=== PATIENT | female | born 1985 | race Caucasian/White ===

== ENCOUNTER 2017-11-13 09:16 | Inpatient (IN) | payer OTHER ==
[2017-11-13 10:22] VITALS: BMI 21.6
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
[2017-11-13] MEDS ORDERED: P-EPHED 60MG/TRIPROLIDI 2.5MG TABLET PO PRN (12:58)
[2017-11-13] MEDS ORDERED: LOPERAMIDE HCL 2 MG CAPSULE PO PRN (12:58)
[2017-11-13] MEDS ORDERED: MAGNESIUM CITRATE 300 ML BOTTLE PO PRN (12:58)
[2017-11-13] MEDS ORDERED: MENTHOL/PHENOL 1 EACH UD MM PRN (12:58)
[2017-11-13] MEDS ORDERED: IBUPROFEN 400 MG TABLET (FP) PO PRN (12:58)
[2017-11-13] MEDS ORDERED: NICOTINE POLACRILEX 2 MG GUM BUC PRN (12:58)
[2017-11-13] MEDS ORDERED: ACETAMINOPHEN 325 MG TABLET (FP) PO PRN (12:58)
[2017-11-13] MEDS ORDERED: MAG HYDROX/AL HYDROX/SIMETH 30 ML UNIT-DOSE CUP PO PRN (12:58)
[2017-11-13] MEDS ORDERED: MAGNESIUM HYDROX 2400MG/30ML ORAL SUSPENSION 30 ML CUP PO PRN (12:58)
[2017-11-13] MEDS ORDERED: diazePAM 5 MG TABLET PO ONE (14:10)
[2017-11-13] MEDS ORDERED: METHADONE HCL 10 MG TABLET (FOR DETOX USE ONLY) PO ONE ×2 (14:15→23:00)
[2017-11-13] MEDS: NICOTINE 14 MG/24 HOURS TOPICAL PATCH TD SCH (14:35)
[2017-11-13] MEDS: diazePAM 5 MG TABLET PO SCH ×2 (14:36→22:12)
[2017-11-13 14:54] LABS: HEMATOCRIT 32.4 % (32.4-45.2); HEMOGLOBIN 10.6 GM/dL (10.7-15.3); MCH 22.8 pg (25.7-33.7); MCHC 32.6 g/dl (32.0-36.0); MEAN CELL VOLUME 69.7 fl (80-96); MEAN PLT VOLUME 7.4 fl (7.5-11.1); PLATELET COUNT 243 K/MM3 (134-434); RBC 4.64 M/mm3 (3.60-5.2); RDW 19.1 % (11.6-15.6); WHITE BLOOD COUNT 7.2 K/mm3 (4.0-10.0)
[2017-11-13 15:00] LABS: ALBUMIN 3.5 g/dl (3.4-5.0); ALK PHOS 96 U/L (45-117); ANION GAP 11 (8-16); BILIRUBIN,TOTAL 0.2 mg/dL (0.2-1.0); BLOOD UREA NITROGEN 3 mg/dL (7-18); CALCIUM 8.7 mg/dL (8.5-10.1); CHLORIDE 100 mmol/L (98-107); CO2 26 mmol/L (21-32); CREATININE 0.6 mg/dL (0.55-1.02); GLUCOSE,RANDOM 87 mg/dL (74-106); POTASSIUM 3.5 mmol/L (3.5-5.1); SGOT/AST 14 U/L (15-37); SGPT/ALT 16 U/L (12-78); SODIUM 137 mmol/L (136-145); TOT PROT 7.5 g/dl (6.4-8.2)
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
--- NOTE | 2017-11-13 15:38 | EKG ---
Test Reason : Blood Pressure : / mmHG Vent. Rate : 097 BPM Atrial Rate : 097 BPM P-R Int : 138 ms QRS Dur : 080 ms QT Int : 368 ms P-R-T Axes : 058 078 038 degrees QTc Int : 467 ms NORMAL SINUS RHYTHM NORMAL ECG NO PREVIOUS ECGS AVAILABLE Confirmed by YOGI VAZQUEZ, JORDY ([id number]) on 11/13/2017 3:37:51 PM Referred By: Confirmed By:JORDY CALIX MD
[2017-11-13] MEDS: diazePAM 5 MG TABLET PO PRN (18:39)
[2017-11-13 18:57] LABS: URINE APPEARANCE CLOUDY; URINE BILIRUBIN NEGATIVE (NEGATIVE); URINE BLOOD NEGATIVE (NEGATIVE); URINE COLOR YELLOW; URINE GLUCOSE (UA) NEGATIVE (NEGATIVE); URINE KETONE NEGATIVE (NEGATIVE); URINE NITRITE NEGATIVE (NEGATIVE); URINE PROTEIN NEGATIVE (NEGATIVE); URINE UROBILINOGEN NEGATIVE mg/dL (0.2-1.0)
[2017-11-13 18:58] LABS: URINE LEUK ESTERASE 1+ (NEGATIVE)
[2017-11-13 19:03] LABS: EPI CELLS MANY /HPF (FEW); URINE BACTERIA RARE /hpf (NONE SEEN); URINE MUCUS RARE
[2017-11-13] MEDS: THIAMINE HCL 100 MG TABLET (FP) PO SCH (22:13)
[2017-11-13] MEDS: GABAPENTIN 300 MG CAPSULE (FP) PO SCH (22:13)
[2017-11-13] MEDS: QUEtiapine FUMARATE 50 MG TABLET PO SCH (22:13)
[2017-11-14] MEDS: diazePAM 5 MG TABLET PO SCH ×3 (05:32→22:19)
[2017-11-14] MEDS: GABAPENTIN 300 MG CAPSULE (FP) PO SCH ×3 (05:32→22:19)
[2017-11-14] MEDS ORDERED: METHADONE HCL 10 MG TABLET (FOR DETOX USE ONLY) PO SCH (10:00)
[2017-11-14] MEDS: hydrOXYzine PAMOATE 50 MG CAPSULE (FP) PO PRN (10:04)
[2017-11-14] MEDS: PRENATAL VITAMINS W/ FOLIC ACID TABLET (FP) PO SCH (10:04)
[2017-11-14] MEDS: diazePAM 5 MG TABLET PO PRN ×2 (10:09→18:18)
[2017-11-14] MEDS: NICOTINE 14 MG/24 HOURS TOPICAL PATCH TD SCH ×2 (11:36→14:31)
--- NOTE | 2017-11-14 12:45 | PN ---
[facility] CIWA - CIWA Score Nausea/Vomitin Muscle Tremors: 3 Anxiety: 3 Agitation: 3 Paroxysmal Sweats: 3 Orientation: 0-Oriented Tacttile Disturbances: 0-None Auditory Disturbances: 0-None Visual Disturbances: 0-None Headache: 0-None Present CIWA-Ar Total Score: 15 S COWS - Scale Resting Pulse: 1= [place] 81-100 Sweatin=Flushed/Facial Moisture Restless Observation: 1= Difficult to Sit Still Pupil Size: 0= Normal to Room Light Bone or Joint Aches: 1= Mild Discomfort Runny Nose/ Eye Tearin= Nasal Congestion GI Upset > 30mins: 1= Stomach Cramp Tremor Observation of Outstretched Hands: 1= Tremor [place], Not Seen Yawning Observation: 1= 1-2x During Session Anxiety or Irritability: 2=Irritable/Anxious Goose Flesh Skin: 0=Smooth Skin COWS Score: 11 [facility] Progress Note (SOAP) Subjective: Shakes sleep disturbance Objective: 11/14/17 12:43 A & O x 3 Anxious Vital Signs Temperature 97.0 F L 11/14/17 10:00 Pulse Rate 98 H 11/14/17 10:00 Respiratory Rate 17 11/14/17 10:00 Blood Pressure 131/58 11/14/17 10:00 O2 Sat by Pulse Oximetry (%) Laboratory Last Values WBC 7.2 K/mm3 (4.0-10.0) 11/13/17 11:15 RBC 4.64 M/mm3 (3.60-5.2) 11/13/17 11:15 Hgb 10.6 GM/dL (10.7-15.3) L D 11/13/17 11:15 Hct 32.4 % (32.4-45.2) 11/13/17 11:15 MCV 69.7 fl (80-96) L 11/13/17 11:15 MCH 22.8 pg (25.7-33.7) L 11/13/17 11:15 MCHC 32.6 g/dl (32.0-36.0) 11/13/17 11:15 RDW 19.1 % (11.6-15.6) H D 11/13/17 11:15 Plt Count 243 K/MM3 (134-434) 11/13/17 11:15 MPV 7.4 fl (7.5-11.1) L 11/13/17 11:15 Sodium 137 mmol/L (136-145) 11/13/17 11:15 Potassium 3.5 mmol/L (3.5-5.1) 11/13/17 11:15 Chloride 100 mmol/L (98-107) 11/13/17 11:15 Carbon Dioxide 26 mmol/L (21-32) 11/13/17 11:15 Anion Gap 11 (8-16) 11/13/17 11:15 BUN 3 mg/dL (7-18) L 11/13/17 11:15 Creatinine 0.6 mg/dL (0.55-1.02) 11/13/17 11:15 Creat Clearance w eGFR > 60 (>60) 11/13/17 11:15 Random Glucose 87 mg/dL (74-106) 11/13/17 11:15 Calcium 8.7 mg/dL (8.5-10.1) 11/13/17 11:15 Total Bilirubin 0.2 mg/dL (0.2-1.0) 11/13/17 11:15 AST 14 U/L (15-37) L 11/13/17 11:15 ALT 16 U/L (12-78) 11/13/17 11:15 Alkaline Phosphatase 96 U/L (45-117) 11/13/17 11:15 Total Protein 7.5 g/dl (6.4-8.2) 11/13/17 11:15 Albumin 3.5 g/dl (3.4-5.0) 11/13/17 11:15 Urine Color Yellow 11/13/17 Unknown Urine Appearance Cloudy 11/13/17 Unknown Urine pH 7.0 (5.0-8.0) D 11/13/17 Unknown Ur Specific [place] 1.014 (1.001-1.035) 11/13/17 Unknown Urine Protein Negative (NEGATIVE) 11/13/17 Unknown Urine Glucose (UA) Negative (NEGATIVE) 11/13/17 Unknown Urine Ketones Negative (NEGATIVE) 11/13/17 Unknown Urine Blood Negative (NEGATIVE) 11/13/17 Unknown Urine Nitrite Negative (NEGATIVE) 11/13/17 Unknown Urine Bilirubin Negative (NEGATIVE) 11/13/17 Unknown Urine Urobilinogen Negative mg/dL (0.2-1.0) 11/13/17 Unknown Ur Leukocyte Esterase 1+ (NEGATIVE) H 11/13/17 Unknown Urine WBC (Auto) 5 /hpf (3-5) 11/13/17 Unknown Urine RBC (Auto) 4 /hpf (0-3) 11/13/17 Unknown Ur Epithelial Cells Many /HPF (FEW) 11/13/17 Unknown Urine Bacteria Rare /hpf (NONE SEEN) 11/13/17 Unknown Urine Mucus Rare 11/13/17 Unknown RPR Titer Nonreactive (NONREACTIVE) 11/13/17 11:15 LAbs noted Assessment: 11/14/17 12:45 Withdrawal sx Plan: continue detox
[2017-11-14] MEDS: guaiFENesin/D-METHORPHAN HB 10 ML UNIT-DOSE CUPS PO PRN (14:05)
[2017-11-14] MEDS: THIAMINE HCL 100 MG TABLET (FP) PO SCH (22:19)
[2017-11-14] MEDS: QUEtiapine FUMARATE 50 MG TABLET PO SCH (22:19)
[2017-11-15] MEDS: GABAPENTIN 300 MG CAPSULE (FP) PO SCH ×3 (06:02→22:31)
[2017-11-15] MEDS: diazePAM 5 MG TABLET PO SCH ×2 (10:08→22:31)
[2017-11-15] MEDS: METHADONE HCL 5 MG TABLET (FOR DETOX USE ONLY) PO SCH (10:09)
[2017-11-15] MEDS: PRENATAL VITAMINS W/ FOLIC ACID TABLET (FP) PO SCH (10:09)
[2017-11-15] MEDS: NICOTINE 14 MG/24 HOURS TOPICAL PATCH TD SCH (10:09)
[2017-11-15] MEDS: guaiFENesin/D-METHORPHAN HB 10 ML UNIT-DOSE CUPS PO PRN ×2 (12:54→22:33)
[2017-11-15] MEDS: diazePAM 5 MG TABLET PO PRN ×2 (12:55→18:01)
--- NOTE | 2017-11-15 14:13 | PN ---
[facility] CIWA - CIWA Score Nausea/Vomitin-No Nausea/No Vomiting Muscle Tremors: 4-Moderate,w/Arms Extend Anxiety: 4-Mod. Anxious/Guarded Agitation: 4-Moderately Restless Paroxysmal Sweats: 1-Minimal Palms Moist Orientation: 0-Oriented Tacttile Disturbances: 0-None Auditory Disturbances: 0-None Visual Disturbances: 0-None Headache: 0-None Present CIWA-Ar Total Score: 13 [facility] COWS - Scale Resting Pulse: 4= [place] > 121 Sweatin= Chills/Flushing Restless Observation: 1= Difficult to Sit Still Pupil Size: 0= Normal to Room Light Bone or Joint Aches: 1= Mild Discomfort Runny Nose/ Eye Tearin= Nasal Congestion GI Upset > 30mins: 1= Stomach Cramp Tremor Observation of Outstretched Hands: 1= Tremor [place], Not Seen Yawning Observation: 0= None Anxiety or Irritability: 1=Feels Anxious/Irritable Goose Flesh Skin: 0=Smooth Skin COWS Score: 11 S Progress Note (SOAP) Subjective: sweat tremor anxiety restlessness sleeplessness, irritable study nose general body ache Objective: 11/15/17 14:13 Vital Signs Temperature 98.6 F 11/15/17 10:00 Pulse Rate 120 H 11/15/17 10:00 Respiratory Rate 20 11/15/17 10:00 Blood Pressure 113/80 11/15/17 10:00 O2 Sat by Pulse Oximetry (%) Laboratory Last Values WBC 7.2 K/mm3 (4.0-10.0) 11/13/17 11:15 RBC 4.64 M/mm3 (3.60-5.2) 11/13/17 11:15 Hgb 10.6 GM/dL (10.7-15.3) L D 11/13/17 11:15 Hct 32.4 % (32.4-45.2) 11/13/17 11:15 MCV 69.7 fl (80-96) L 11/13/17 11:15 MCH 22.8 pg (25.7-33.7) L 11/13/17 11:15 MCHC 32.6 g/dl (32.0-36.0) 11/13/17 11:15 RDW 19.1 % (11.6-15.6) H D 11/13/17 11:15 Plt Count 243 K/MM3 (134-434) 11/13/17 11:15 MPV 7.4 fl (7.5-11.1) L 11/13/17 11:15 Sodium 137 mmol/L (136-145) 11/13/17 11:15 Potassium 3.5 mmol/L (3.5-5.1) 11/13/17 11:15 Chloride 100 mmol/L (98-107) 11/13/17 11:15 Carbon Dioxide 26 mmol/L (21-32) 11/13/17 11:15 Anion Gap 11 (8-16) 11/13/17 11:15 BUN 3 mg/dL (7-18) L 11/13/17 11:15 Creatinine 0.6 mg/dL (0.55-1.02) 11/13/17 11:15 Creat Clearance w eGFR > 60 (>60) 11/13/17 11:15 Random Glucose 87 mg/dL (74-106) 11/13/17 11:15 Calcium 8.7 mg/dL (8.5-10.1) 11/13/17 11:15 Total Bilirubin 0.2 mg/dL (0.2-1.0) 11/13/17 11:15 AST 14 U/L (15-37) L 11/13/17 11:15 ALT 16 U/L (12-78) 11/13/17 11:15 Alkaline Phosphatase 96 U/L (45-117) 11/13/17 11:15 Total Protein 7.5 g/dl (6.4-8.2) 11/13/17 11:15 Albumin 3.5 g/dl (3.4-5.0) 11/13/17 11:15 Urine Color Yellow 11/13/17 Unknown Urine Appearance Cloudy 11/13/17 Unknown Urine pH 7.0 (5.0-8.0) D 11/13/17 Unknown Ur Specific [place] 1.014 (1.001-1.035) 11/13/17 Unknown Urine Protein Negative (NEGATIVE) 11/13/17 Unknown Urine Glucose (UA) Negative (NEGATIVE) 11/13/17 Unknown Urine Ketones Negative (NEGATIVE) 11/13/17 Unknown Urine Blood Negative (NEGATIVE) 11/13/17 Unknown Urine Nitrite Negative (NEGATIVE) 11/13/17 Unknown Urine Bilirubin Negative (NEGATIVE) 11/13/17 Unknown Urine Urobilinogen Negative mg/dL (0.2-1.0) 11/13/17 Unknown Ur Leukocyte Esterase 1+ (NEGATIVE) H 11/13/17 Unknown Urine WBC (Auto) 5 /hpf (3-5) 11/13/17 Unknown Urine RBC (Auto) 4 /hpf (0-3) 11/13/17 Unknown Ur Epithelial Cells Many /HPF (FEW) 11/13/17 Unknown Urine Bacteria Rare /hpf (NONE SEEN) 11/13/17 Unknown Urine Mucus Rare 11/13/17 Unknown RPR Titer Nonreactive (NONREACTIVE) 11/13/17 11:15 lab noted Assessment: 11/15/17 14:14 withdrawal sx Plan: continue detox
[2017-11-15] MEDS: QUEtiapine FUMARATE 50 MG TABLET PO SCH (22:31)
[2017-11-15] MEDS: THIAMINE HCL 100 MG TABLET (FP) PO SCH (22:31)
[2017-11-16] MEDS: GABAPENTIN 300 MG CAPSULE (FP) PO SCH ×3 (06:07→22:16)
[2017-11-16] MEDS: diazePAM 5 MG TABLET PO PRN ×2 (06:09→12:43)
[2017-11-16] MEDS: guaiFENesin/D-METHORPHAN HB 10 ML UNIT-DOSE CUPS PO PRN ×3 (06:10→22:17)
--- NOTE | 2017-11-16 10:04 | PN ---
[facility] Progress Note (SOAP) Subjective: sweat tremor anxiety request psychiatrist follow up restlessness irritable agitative GI upset general body ache Objective: 11/16/17 10:03 Vital Signs Temperature 98.9 F 11/16/17 06:26 Pulse Rate 69 11/16/17 06:26 Respiratory Rate 18 11/16/17 06:30 Blood Pressure 152/68 11/16/17 06:26 O2 Sat by Pulse Oximetry (%) Laboratory Last Values WBC 7.2 K/mm3 (4.0-10.0) 11/13/17 11:15 RBC 4.64 M/mm3 (3.60-5.2) 11/13/17 11:15 Hgb 10.6 GM/dL (10.7-15.3) L D 11/13/17 11:15 Hct 32.4 % (32.4-45.2) 11/13/17 11:15 MCV 69.7 fl (80-96) L 11/13/17 11:15 MCH 22.8 pg (25.7-33.7) L 11/13/17 11:15 MCHC 32.6 g/dl (32.0-36.0) 11/13/17 11:15 RDW 19.1 % (11.6-15.6) H D 11/13/17 11:15 Plt Count 243 K/MM3 (134-434) 11/13/17 11:15 MPV 7.4 fl (7.5-11.1) L 11/13/17 11:15 Sodium 137 mmol/L (136-145) 11/13/17 11:15 Potassium 3.5 mmol/L (3.5-5.1) 11/13/17 11:15 Chloride 100 mmol/L (98-107) 11/13/17 11:15 Carbon Dioxide 26 mmol/L (21-32) 11/13/17 11:15 Anion Gap 11 (8-16) 11/13/17 11:15 BUN 3 mg/dL (7-18) L 11/13/17 11:15 Creatinine 0.6 mg/dL (0.55-1.02) 11/13/17 11:15 Creat Clearance w eGFR > 60 (>60) 11/13/17 11:15 Random Glucose 87 mg/dL (74-106) 11/13/17 11:15 Calcium 8.7 mg/dL (8.5-10.1) 11/13/17 11:15 Total Bilirubin 0.2 mg/dL (0.2-1.0) 11/13/17 11:15 AST 14 U/L (15-37) L 11/13/17 11:15 ALT 16 U/L (12-78) 11/13/17 11:15 Alkaline Phosphatase 96 U/L (45-117) 11/13/17 11:15 Total Protein 7.5 g/dl (6.4-8.2) 11/13/17 11:15 Albumin 3.5 g/dl (3.4-5.0) 11/13/17 11:15 Urine Color Yellow 11/13/17 Unknown Urine Appearance Cloudy 11/13/17 Unknown Urine pH 7.0 (5.0-8.0) D 11/13/17 Unknown Ur Specific [place] 1.014 (1.001-1.035) 11/13/17 Unknown Urine Protein Negative (NEGATIVE) 11/13/17 Unknown Urine Glucose (UA) Negative (NEGATIVE) 11/13/17 Unknown Urine Ketones Negative (NEGATIVE) 11/13/17 Unknown Urine Blood Negative (NEGATIVE) 11/13/17 Unknown Urine Nitrite Negative (NEGATIVE) 11/13/17 Unknown Urine Bilirubin Negative (NEGATIVE) 11/13/17 Unknown Urine Urobilinogen Negative mg/dL (0.2-1.0) 11/13/17 Unknown Ur Leukocyte Esterase 1+ (NEGATIVE) H 11/13/17 Unknown Urine WBC (Auto) 5 /hpf (3-5) 11/13/17 Unknown Urine RBC (Auto) 4 /hpf (0-3) 11/13/17 Unknown Ur Epithelial Cells Many /HPF (FEW) 11/13/17 Unknown Urine Bacteria Rare /hpf (NONE SEEN) 11/13/17 Unknown Urine Mucus Rare 11/13/17 Unknown RPR Titer Nonreactive (NONREACTIVE) 11/13/17 11:15 lab noted Assessment: 11/16/17 10:04 withdrawal sx Plan: continue detox
[2017-11-16] MEDS: PRENATAL VITAMINS W/ FOLIC ACID TABLET (FP) PO SCH (10:30)
[2017-11-16] MEDS: diazePAM 5 MG TABLET PO SCH ×2 (10:31→22:16)
[2017-11-16] MEDS: METHADONE HCL 5 MG TABLET (FOR DETOX USE ONLY) PO SCH (10:31)
[2017-11-16] MEDS: NICOTINE 14 MG/24 HOURS TOPICAL PATCH TD SCH (10:31)
[2017-11-16] MEDS: hydrOXYzine PAMOATE 50 MG CAPSULE (FP) PO PRN (16:50)
[2017-11-16] MEDS ORDERED: cloNIDine HCL 0.1 MG TABLET PO ONE (21:19)
[2017-11-16] MEDS: QUEtiapine FUMARATE 50 MG TABLET PO SCH (22:16)
[2017-11-16] MEDS: THIAMINE HCL 100 MG TABLET (FP) PO SCH (22:17)
[2017-11-17] MEDS: GABAPENTIN 300 MG CAPSULE (FP) PO SCH ×2 (05:47→13:03)
[2017-11-17] MEDS ORDERED: diazePAM 5 MG TABLET PO SCH (10:00)
[2017-11-17] MEDS ORDERED: METHADONE HCL 10 MG TABLET (FOR DETOX USE ONLY) PO SCH (10:00)
[2017-11-17] MEDS: PRENATAL VITAMINS W/ FOLIC ACID TABLET (FP) PO SCH (10:03)
[2017-11-17] MEDS: NICOTINE 14 MG/24 HOURS TOPICAL PATCH TD SCH (10:04)
[2017-11-17] MEDS ORDERED: ALBUTEROL SO4 18 GM HFA INHALER IH PRN (10:57)
--- NOTE | 2017-11-17 10:59 | PN ---
[facility] Progress Note (SOAP) Subjective: alert oriented denies gi distress no tremor denies pain less sweat Objective: 11/17/17 10:58 Vital Signs Temperature 98.2 F 11/17/17 10:09 Pulse Rate 117 H 11/17/17 10:09 Respiratory Rate 18 11/17/17 10:09 Blood Pressure 123/78 11/17/17 10:09 O2 Sat by Pulse Oximetry (%) Laboratory Last Values WBC 7.2 K/mm3 (4.0-10.0) 11/13/17 11:15 RBC 4.64 M/mm3 (3.60-5.2) 11/13/17 11:15 Hgb 10.6 GM/dL (10.7-15.3) L D 11/13/17 11:15 Hct 32.4 % (32.4-45.2) 11/13/17 11:15 MCV 69.7 fl (80-96) L 11/13/17 11:15 MCH 22.8 pg (25.7-33.7) L 11/13/17 11:15 MCHC 32.6 g/dl (32.0-36.0) 11/13/17 11:15 RDW 19.1 % (11.6-15.6) H D 11/13/17 11:15 Plt Count 243 K/MM3 (134-434) 11/13/17 11:15 MPV 7.4 fl (7.5-11.1) L 11/13/17 11:15 Sodium 137 mmol/L (136-145) 11/13/17 11:15 Potassium 3.5 mmol/L (3.5-5.1) 11/13/17 11:15 Chloride 100 mmol/L (98-107) 11/13/17 11:15 Carbon Dioxide 26 mmol/L (21-32) 11/13/17 11:15 Anion Gap 11 (8-16) 11/13/17 11:15 BUN 3 mg/dL (7-18) L 11/13/17 11:15 Creatinine 0.6 mg/dL (0.55-1.02) 11/13/17 11:15 Creat Clearance w eGFR > 60 (>60) 11/13/17 11:15 Random Glucose 87 mg/dL (74-106) 03/09/18 11:15 Calcium 8.7 mg/dL (8.5-10.1) 11/13/17 11:15 Total Bilirubin 0.2 mg/dL (0.2-1.0) 11/13/17 11:15 AST 14 U/L (15-37) L 11/13/17 11:15 ALT 16 U/L (12-78) 11/13/17 11:15 Alkaline Phosphatase 96 U/L (45-117) 11/13/17 11:15 Total Protein 7.5 g/dl (6.4-8.2) 11/13/17 11:15 Albumin 3.5 g/dl (3.4-5.0) 11/13/17 11:15 Urine Color Yellow 11/13/17 Unknown Urine Appearance Cloudy 11/13/17 Unknown Urine pH 7.0 (5.0-8.0) D 11/13/17 Unknown Ur Specific [place] 1.014 (1.001-1.035) 11/13/17 Unknown Urine Protein Negative (NEGATIVE) 11/13/17 Unknown Urine Glucose (UA) Negative (NEGATIVE) 11/13/17 Unknown Urine Ketones Negative (NEGATIVE) 11/13/17 Unknown Urine Blood Negative (NEGATIVE) 11/13/17 Unknown Urine Nitrite Negative (NEGATIVE) 11/13/17 Unknown Urine Bilirubin Negative (NEGATIVE) 11/13/17 Unknown Urine Urobilinogen Negative mg/dL (0.2-1.0) 11/13/17 Unknown Ur Leukocyte Esterase 1+ (NEGATIVE) H 11/13/17 Unknown Urine WBC (Auto) 5 /hpf (3-5) 11/13/17 Unknown Urine RBC (Auto) 4 /hpf (0-3) 11/13/17 Unknown Ur Epithelial Cells Many /HPF (FEW) 11/13/17 Unknown Urine Bacteria Rare /hpf (NONE SEEN) 11/13/17 Unknown Urine Mucus Rare 11/13/17 Unknown RPR Titer Nonreactive (NONREACTIVE) 11/13/17 11:15 lab noted Assessment: 11/17/17 10:57 mild withdrawal sx Plan: medically supervised detox
[2017-11-17] MEDS ORDERED: QUEtiapine FUMARATE 50 MG TABLET PO ONE (12:45)
[2017-11-17] MEDS: hydrOXYzine PAMOATE 50 MG CAPSULE (FP) PO PRN (13:03)
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
[2017-11-17 14:09] VITALS: BP 150/77; PULSE 123; TEMP 99.3
--- NOTE | 2017-11-17 17:19 | DS ---
[facility] Discharge Summary Admission Date: 11/13/17 Discharge Date: 11/17/17 - History Present History: Alcohol Dependence, Opioid Dependence, Sedative Dependence Pertinent Past History: Substance induce mood disorder PTSD Nicotine dependence - Physical Exam Results Vital Signs: Vital Signs Temperature 99.3 F 11/17/17 14:08 Pulse Rate 123 H 11/17/17 14:08 Respiratory Rate 20 11/17/17 14:08 Blood Pressure 150/77 11/17/17 14:08 O2 Sat by Pulse Oximetry (%) - Treatment Hospital Course: Detox Protocol Followed, Detoxed Safely, Responded well, Discharged Condition Good Patient has Accepted a Rehab Referral to: Out patient self help groups - Medication Discharge Medications: Ambulatory Orders Gabapentin [Neurontin -] 600 mg PO TID 11/13/17 Quetiapine Fumarate [Seroquel -] 150 mg PO HS 11/13/17 - Diagnosis (1) Alcohol dependence with uncomplicated withdrawal Current Visit: Yes Status: Acute (2) Insomnia Current Visit: Yes Status: Acute (3) Opioid dependence with withdrawal Current Visit: Yes Status: Acute (4) Sedative, hypnotic or anxiolytic dependence with withdrawal, uncomplicated Current Visit: Yes Status: Acute (5) GERD (gastroesophageal reflux disease) Current Visit: Yes Status: Chronic Qualifiers: Esophagitis presence: esophagitis presence not specified Qualified Code(s) : K21.9 - Gastro-esophageal reflux disease without esophagitis (6) Nicotine dependence Current Visit: Yes Status: Chronic Qualifiers: Nicotine product type: cigarettes Substance use status: in withdrawal Qualified Code(s): F17.213 - Nicotine dependence, cigarettes, with withdrawal (7) PTSD (post-traumatic stress disorder) Current Visit: Yes Status: Chronic (8) Bipolar II disorder Current Visit: No Status: Acute - AMA Did Patient Leave Against Medical Advice: No
[2017-11-18] MEDS ORDERED: METHADONE HCL 5 MG TABLET (FOR DETOX USE ONLY) PO SCH (06:00)
== END 2017-11-17 17:47 | disposition left against medical advice (07) | DRG 770 ==
LOC: YASAS 09:16 → Y6N 11:56
PROVIDERS: ADMIT Internal Medicine; ATTEND Internal Medicine
PROC: HZ2ZZZZ Detoxification Services for Substance Abuse Treatment (ICD-10-PCS; principal; 2017-11-13)
DX: F11.23 Opioid dependence with withdrawal (principal); F13.230 Sedative, hypnotic or anxiolytic dependence with withdrawal, uncomplicated; F10.230 Alcohol dependence with withdrawal, uncomplicated; F17.213 Nicotine dependence, cigarettes, with withdrawal; F43.10 Post-traumatic stress disorder, unspecified; F31.81 Bipolar II disorder; F39 Unspecified mood [affective] disorder; G47.00 Insomnia, unspecified; K21.9 Gastro-esophageal reflux disease without esophagitis; M54.5 Low back pain; Z88.8 Allergy status to other drugs, medicaments and biological substances
CPT/HCPCS: 36415; 80053; 81003; 81015; 85027; 86593; 93005; 93010; J0735

== ENCOUNTER 2017-12-08 12:56 | Inpatient (IN) | payer OTHER ==
[2017-12-08 14:24] VITALS: BMI 22.3
--- NOTE | 2017-12-08 15:43 | HP ---
[facility] Rehab Assess/Revision - Admission History Admitted to Rehab from: [facility] Date of Admission to Rehab: 12/08/2017 - Vital signs Vital Signs: Vital Signs Period Temp Pulse Resp BP Sys/Gomez Pulse Ox Last 24 Hr 99.8 F 85 18 141/75 - Findings Detox History & Physical reviewed: Yes Concur with findings: Yes Inpatient Rehab Admission - Initial Determination Are CD services needed?: Yes Free of communicable disease: Yes Not in need of hospitalization: Yes - Rehab Admission Criteria Previous failed treatment: Yes Patient is meeting Inpatient Rehab admission criteria:: Yes (pateint relaspsed after levign detox at [facility], just completed etox ant )
[2017-12-08] MEDS ORDERED: MAGNESIUM HYDROX 2400MG/30ML ORAL SUSPENSION 30 ML CUP PO PRN (15:45)
[2017-12-08] MEDS ORDERED: MAG HYDROX/AL HYDROX/SIMETH 30 ML UNIT-DOSE CUP PO PRN (15:45)
[2017-12-08] MEDS ORDERED: MAGNESIUM CITRATE 300 ML BOTTLE PO PRN (15:45)
[2017-12-08] MEDS ORDERED: hydrOXYzine PAMOATE 50 MG CAPSULE (FP) PO PRN (15:45)
[2017-12-08] MEDS ORDERED: P-EPHED 60MG/TRIPROLIDI 2.5MG TABLET PO PRN (15:45)
[2017-12-08] MEDS ORDERED: guaiFENesin/D-METHORPHAN HB 10 ML UNIT-DOSE CUPS PO PRN (15:45)
[2017-12-08] MEDS ORDERED: MENTHOL/PHENOL 1 EACH UD MM PRN (15:45)
[2017-12-08] MEDS ORDERED: LOPERAMIDE HCL 2 MG CAPSULE PO PRN (15:45)
[2017-12-08] MEDS ORDERED: IBUPROFEN 400 MG TABLET (FP) PO PRN (15:45)
[2017-12-08] MEDS: NICOTINE 21 MG/24 HOURS TOPICAL PATCH TD SCH (19:47)
--- NOTE | 2017-12-08 19:58 | PN ---
[facility] Progress Note Note: Psychiatrist traffic personnel supervisor note: called by a nurse to place orders for this patient for seroquel 150 mg, chart reviewed, patient was in detox on11/17/17 and seen by adair Jeronimo per consult she was on Seroquel 150 MG and Gabapentin 600 MG tid, as per pharmacy claims patient on Depakote 500 mg pobid and Seroquel 150 mg hs, order for Seroquel [address], Depakote or/and Gabapentin needs clarification, psychiatric eval. in am
[2017-12-08] MEDS: THIAMINE HCL 100 MG TABLET (FP) PO SCH (21:24)
[2017-12-08] MEDS: QUEtiapine FUMARATE 50 MG TABLET PO SCH (21:24)
[2017-12-08] MEDS ORDERED: MELATONIN 5 MG TABLETS PO PRN (22:00)
[2017-12-09 05:02] LABS: URINE APPEARANCE CLOUDY; URINE BILIRUBIN NEGATIVE (<2.0 mg/dL); URINE BLOOD NEGATIVE (NEGATIVE); URINE COLOR LTYELLOW; URINE GLUCOSE (UA) NEGATIVE (NEGATIVE); URINE KETONE NEGATIVE (NEGATIVE); URINE NITRITE NEGATIVE (NEGATIVE); URINE PROTEIN NEGATIVE (NEGATIVE); URINE UROBILINOGEN NEGATIVE mg/dL (0.2-1.0)
[2017-12-09 05:29] LABS: URINE LEUK ESTERASE 2+ (NEGATIVE)
[2017-12-09 05:50] LABS: EPI CELLS FEW /HPF (FEW); URINE BACTERIA MODERATE /hpf (NONE SEEN); URINE MUCUS RARE
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
[2017-12-09] MEDS: PRENATAL VITAMINS W/ FOLIC ACID TABLET (FP) PO SCH (10:07)
[2017-12-09] MEDS: NICOTINE 21 MG/24 HOURS TOPICAL PATCH TD SCH (10:08)
--- NOTE | 2017-12-09 13:08 | EKG ---
Test Reason : Blood Pressure : / mmHG Vent. Rate : 079 BPM Atrial Rate : 079 BPM P-R Int : 128 ms QRS Dur : 088 ms QT Int : 392 ms P-R-T Axes : 025 084 048 degrees QTc Int : 449 ms NORMAL SINUS RHYTHM NORMAL ECG WHEN COMPARED WITH ECG OF 13-NOV-2017 14:18, NO SIGNIFICANT CHANGE WAS FOUND Confirmed by JORDY CALIX MD ([id number]) on 12/09/2017 1:08:00 PM Referred By: Confirmed By:JORDY CALIX MD
--- NOTE | 2017-12-09 14:17 | PN ---
[facility] Progress Note Note: Patient reports feeling nauseous, breast tenderness x 3-4 days. Would like to have blood test done. Reports history of unprotected sex. + Hx of eczema. Obj: alert and oriented x 3. + facial rash. A/P will order serum HCG Lidex cream ordered for eczema
[2017-12-09 14:34] LABS: HEMATOCRIT 35.2 % (32.4-45.2); HEMOGLOBIN 11.2 GM/dL (10.7-15.3); MCH 23.3 pg (25.7-33.7); MCHC 31.8 g/dl (32.0-36.0); MEAN CELL VOLUME 73.1 fl (80-96); MEAN PLT VOLUME 7.4 fl (7.5-11.1); PLATELET COUNT 309 K/MM3 (134-434); RBC 4.81 M/mm3 (3.60-5.2); WHITE BLOOD COUNT 6.9 K/mm3 (4.0-10.0)
[2017-12-09] MEDS: GABAPENTIN 300 MG CAPSULE (FP) PO SCH ×2 (17:47→21:28)
[2017-12-09] MEDS: ACETAMINOPHEN 325 MG TABLET (FP) PO PRN (17:49)
[2017-12-09] MEDS: FLUOCINONIDE 0.05% CREAM (15 GM TUBE) TP SCH ×2 (18:25→21:30)
[2017-12-09] MEDS: THIAMINE HCL 100 MG TABLET (FP) PO SCH (21:26)
[2017-12-09] MEDS: MIRTAZAPINE 15 MG TABLET (FP) PO SCH (21:28)
[2017-12-09] MEDS: QUEtiapine FUMARATE 50 MG TABLET PO SCH (21:28)
[2017-12-10] MEDS: GABAPENTIN 300 MG CAPSULE (FP) PO SCH ×3 (06:31→21:15)
[2017-12-10] MEDS ORDERED: PT OWN MED DRAWER 7, Y5N ONE ×2 (08:38→19:24)
[2017-12-10] MEDS: PRENATAL VITAMINS W/ FOLIC ACID TABLET (FP) PO SCH (09:57)
[2017-12-10] MEDS: NICOTINE 21 MG/24 HOURS TOPICAL PATCH TD SCH (09:57)
[2017-12-10] MEDS: FLUOCINONIDE 0.05% CREAM (15 GM TUBE) TP SCH ×4 (10:29→21:14)
[2017-12-10] MEDS: MIRTAZAPINE 15 MG TABLET (FP) PO SCH (21:15)
[2017-12-10] MEDS: THIAMINE HCL 100 MG TABLET (FP) PO SCH (21:15)
[2017-12-10] MEDS: QUEtiapine FUMARATE 50 MG TABLET PO SCH (21:15)
[2017-12-11] MEDS: GABAPENTIN 300 MG CAPSULE (FP) PO SCH ×3 (06:55→21:27)
[2017-12-11] MEDS: PRENATAL VITAMINS W/ FOLIC ACID TABLET (FP) PO SCH (09:41)
[2017-12-11] MEDS: NICOTINE 21 MG/24 HOURS TOPICAL PATCH TD SCH (09:41)
[2017-12-11] MEDS: FLUOCINONIDE 0.05% CREAM (15 GM TUBE) TP SCH ×4 (09:42→21:28)
[2017-12-11] MEDS: ACETAMINOPHEN 325 MG TABLET (FP) PO PRN ×2 (12:27→19:09)
--- NOTE | 2017-12-11 12:48 | PN ---
[facility] Progress Note Note: Patient presents with complaint of pelvic discomfort and has low grade temperature of 100.6. Also reports occasional seeing spots when she goes from sitting to standing position. Vital Signs Temperature 100.6 F H 12/11/17 12:05 Pulse Rate 111 H 12/11/17 12:05 Respiratory Rate 18 12/11/17 12:05 Blood Pressure 126/86 12/11/17 12:05 O2 Sat by Pulse Oximetry (%) Laboratory Tests 12/09/17 12/09/17 12/09/17 00:45 09:00 09:00 WBC 6.9 RBC 4.81 Hgb 11.2 Hct 35.2 MCV 73.1 L MCH 23.3 L MCHC 31.8 L RDW 20.0 H Plt Count 309 D MPV 7.4 L Beta HCG, Quant Urine Color Ltyellow Urine Appearance Cloudy Urine pH 8.0 Ur Specific [place] 1.009 Urine Protein Negative Urine Glucose (UA) Negative Urine Ketones Negative Urine Blood Negative Urine Nitrite Negative Urine Bilirubin Negative Urine Urobilinogen Negative Ur Leukocyte Esterase 2+ H Urine WBC (Auto) 3 Urine RBC (Auto) 4 Ur Epithelial Cells Few Urine Bacteria Moderate Urine Mucus Rare Valproic Acid Hep C Ab Diagnostic <0.1 Liver Fibrosis Interp 12/09/17 12/10/17 10:30 07:00 WBC RBC Hgb Hct MCV MCH MCHC RDW Plt Count MPV Beta HCG, Quant < 1.0 Urine Color Urine Appearance Urine pH Ur Specific [place] Urine Protein Urine Glucose (UA) Urine Ketones Urine Blood Urine Nitrite Urine Bilirubin Urine Urobilinogen Ur Leukocyte Esterase Urine WBC (Auto) Urine RBC (Auto) Ur Epithelial Cells Urine Bacteria Urine Mucus Valproic Acid 10.328 L Hep C Ab Diagnostic Liver Fibrosis Interp Patient reports pelvic discomfort x 2 days. Has low grade temp of 100.6. Denies cough, sob and chest pain. States she has small amount of yellow discharge but denies dysuria. Obj: HEENT: + PERRLA, EOMs intact skin warm and dry car: s1s2 Resp: CTA BL GI : soft BS+, +pelvic tenderness, no CVA tenderness a/p: Fever Pelvic tenderness Rule out UTI Pt to increase oral fluids, check UA and CBC. Instructed to rise from chair slowly. start Levaquin 750mg daily x 7 days instructed to notify financial investigator/md/nurse if symptoms worsen
[2017-12-11] MEDS: THIAMINE HCL 100 MG TABLET (FP) PO SCH (21:27)
[2017-12-11] MEDS: MIRTAZAPINE 15 MG TABLET (FP) PO SCH (21:28)
[2017-12-11] MEDS: QUEtiapine FUMARATE 50 MG TABLET PO SCH (21:28)
[2017-12-12] MEDS ORDERED: PT OWN MED DRAWER 7, Y5N ONE ×2 (03:23→08:51)
[2017-12-12] MEDS: GABAPENTIN 300 MG CAPSULE (FP) PO SCH ×3 (06:56→21:14)
[2017-12-12] MEDS: NICOTINE 21 MG/24 HOURS TOPICAL PATCH TD SCH (09:38)
[2017-12-12] MEDS: PRENATAL VITAMINS W/ FOLIC ACID TABLET (FP) PO SCH (09:38)
[2017-12-12] MEDS: FLUOCINONIDE 0.05% CREAM (15 GM TUBE) TP SCH ×4 (09:38→21:13)
[2017-12-12 11:20] LABS: URINE APPEARANCE CLOUDY; URINE BILIRUBIN NEGATIVE (<2.0 mg/dL); URINE BLOOD NEGATIVE (NEGATIVE); URINE COLOR LTYELLOW; URINE GLUCOSE (UA) NEGATIVE (NEGATIVE); URINE KETONE NEGATIVE (NEGATIVE); URINE NITRITE NEGATIVE (NEGATIVE); URINE PROTEIN NEGATIVE (NEGATIVE); URINE UROBILINOGEN NEGATIVE mg/dL (0.2-1.0)
[2017-12-12 11:31] LABS: BASO % 0.6 % (0-2.0); EOS % 0.7 % (0-4.5); HEMATOCRIT 35.2 % (32.4-45.2); HEMOGLOBIN 11.3 GM/dL (10.7-15.3); MCH 23.5 pg (25.7-33.7); MCHC 32.1 g/dl (32.0-36.0); MEAN CELL VOLUME 73.1 fl (80-96); MEAN PLT VOLUME 7.9 fl (7.5-11.1); NEUT % 60.7 % (42.8-82.8); PLATELET COUNT 262 K/MM3 (134-434); RBC 4.82 M/mm3 (3.60-5.2); RDW 19.6 % (11.6-15.6); WHITE BLOOD COUNT 8.2 K/mm3 (4.0-10.0)
[2017-12-12 11:36] LABS: URINE LEUK ESTERASE 3+ (NEGATIVE)
[2017-12-12 11:41] LABS: EPI CELLS FEW /HPF (FEW)
[2017-12-12] MEDS: ACETAMINOPHEN 325 MG TABLET (FP) PO PRN ×2 (15:40→22:32)
[2017-12-12] MEDS: QUEtiapine FUMARATE 50 MG TABLET PO SCH (21:14)
[2017-12-12] MEDS: MIRTAZAPINE 15 MG TABLET (FP) PO SCH (21:14)
[2017-12-12] MEDS: THIAMINE HCL 100 MG TABLET (FP) PO SCH (21:14)
[2017-12-13] MEDS ORDERED: PT OWN MED DRAWER 7, Y5N ONE (03:13)
[2017-12-13] MEDS: GABAPENTIN 300 MG CAPSULE (FP) PO SCH ×3 (06:20→21:14)
[2017-12-13] MEDS: NICOTINE 21 MG/24 HOURS TOPICAL PATCH TD SCH (09:32)
[2017-12-13] MEDS: FLUOCINONIDE 0.05% CREAM (15 GM TUBE) TP SCH ×4 (09:33→21:14)
[2017-12-13] MEDS: PRENATAL VITAMINS W/ FOLIC ACID TABLET (FP) PO SCH (09:33)
[2017-12-13] MEDS: ACETAMINOPHEN 325 MG TABLET (FP) PO PRN (15:44)
[2017-12-13] MEDS: MIRTAZAPINE 15 MG TABLET (FP) PO SCH (21:14)
[2017-12-13] MEDS: THIAMINE HCL 100 MG TABLET (FP) PO SCH (21:14)
[2017-12-13] MEDS: QUEtiapine FUMARATE 50 MG TABLET PO SCH (21:14)
[2017-12-14] MEDS ORDERED: PT OWN MED DRAWER 7, Y5N ONE ×5 (02:58→13:49)
[2017-12-14] MEDS: GABAPENTIN 300 MG CAPSULE (FP) PO SCH ×3 (06:21→21:11)
[2017-12-14] MEDS: FLUOCINONIDE 0.05% CREAM (15 GM TUBE) TP SCH ×4 (09:58→21:13)
[2017-12-14] MEDS: NICOTINE 21 MG/24 HOURS TOPICAL PATCH TD SCH (09:58)
[2017-12-14] MEDS: PRENATAL VITAMINS W/ FOLIC ACID TABLET (FP) PO SCH (09:58)
[2017-12-14] MEDS ORDERED: IBUPROFEN 600 MG TABLET (FP) PO PRN (19:06)
[2017-12-14] MEDS: THIAMINE HCL 100 MG TABLET (FP) PO SCH (21:11)
[2017-12-14] MEDS: QUEtiapine FUMARATE 50 MG TABLET PO SCH (21:11)
[2017-12-14] MEDS: MIRTAZAPINE 15 MG TABLET (FP) PO SCH (21:11)
--- NOTE | 2017-12-14 22:36 | PN ---
[facility] Progress Note Note: Patient c/o of lower pelvic pain x 2 days with no relief with analgesics and antibiotics. Vital Signs Temperature 98.6 F 12/14/17 07:04 Pulse Rate 99 H 12/14/17 07:04 Respiratory Rate 18 12/14/17 07:04 Blood Pressure 125/90 12/14/17 07:04 O2 Sat by Pulse Oximetry (%) Laboratory Last Values WBC 8.2 K/mm3 (4.0-10.0) 12/12/17 08:40 RBC 4.82 M/mm3 (3.60-5.2) 12/12/17 08:40 Hgb 11.3 GM/dL (10.7-15.3) 12/12/17 08:40 Hct 35.2 % (32.4-45.2) 12/12/17 08:40 MCV 73.1 fl (80-96) L 12/12/17 08:40 MCH 23.5 pg (25.7-33.7) L 12/12/17 08:40 MCHC 32.1 g/dl (32.0-36.0) 12/12/17 08:40 RDW 19.6 % (11.6-15.6) H 12/12/17 08:40 Plt Count 262 K/MM3 (134-434) 12/12/17 08:40 MPV 7.9 fl (7.5-11.1) 12/12/17 08:40 Neutrophils % 60.7 % (42.8-82.8) 12/12/17 08:40 Lymphocytes % 30.0 % (8-40) 12/12/17 08:40 Monocytes % 8.0 % (3.8-10.2) 12/12/17 08:40 Eosinophils % 0.7 % (0-4.5) 12/12/17 08:40 Basophils % 0.6 % (0-2.0) 12/12/17 08:40 Beta HCG, Quant < 1.0 mIU/ml 12/09/17 10:30 Urine Color Ltyellow 12/11/17 13:40 Urine Appearance Cloudy 12/11/17 13:40 Urine pH 8.0 (5.0-8.0) 12/11/17 13:40 Ur Specific [place] 1.008 (1.001-1.035) 12/11/17 13:40 Urine Protein Negative (NEGATIVE) 12/11/17 13:40 Urine Glucose (UA) Negative (NEGATIVE) 12/11/17 13:40 Urine Ketones Negative (NEGATIVE) 12/11/17 13:40 Urine Blood Negative (NEGATIVE) 12/11/17 13:40 Urine Nitrite Negative (NEGATIVE) 12/11/17 13:40 Urine Bilirubin Negative (<2.0 mg/dL) 12/11/17 13:40 Urine Urobilinogen Negative mg/dL (0.2-1.0) 12/11/17 13:40 Ur Leukocyte Esterase 3+ (NEGATIVE) H 12/11/17 13:40 Urine WBC (Auto) 2 /hpf (3-5) 12/11/17 13:40 Urine RBC (Auto) 5 /hpf (0-3) 12/11/17 13:40 Ur Epithelial Cells Few /HPF (FEW) 12/11/17 13:40 Urine Bacteria Moderate /hpf (NONE SEEN) 12/09/17 00:45 Urine Mucus Rare 12/09/17 00:45 Valproic Acid 10.328 ug/ml (50-100) L 12/10/17 07:00 Hep C Ab Diagnostic <0.1 s/co ratio (0.0-0.9) 12/09/17 09:00 Liver Fibrosis Interp (.) 12/09/17 09:00 Patient was sent to [facility] for further evaluation Patient endorse to Dr. Stark.
[2017-12-15] MEDS: GABAPENTIN 300 MG CAPSULE (FP) PO SCH ×3 (06:36→21:25)
--- NOTE | 2017-12-15 07:40 | PN ---
[facility] Progress Note Note: Patient came back from ER with diagnosis of acute PID. Doxycycline 100mg capsule oral BID x 14 days ordered
[2017-12-15] MEDS ORDERED: DOXYCYCLINE HYCLATE 100 MG CAPSULE PO SCH (10:00)
[2017-12-15] MEDS: NICOTINE 21 MG/24 HOURS TOPICAL PATCH TD SCH (10:02)
[2017-12-15] MEDS: PRENATAL VITAMINS W/ FOLIC ACID TABLET (FP) PO SCH (10:02)
[2017-12-15] MEDS: FLUOCINONIDE 0.05% CREAM (15 GM TUBE) TP SCH ×4 (10:02→21:28)
[2017-12-15] MEDS: DOXYCYCLINE HYCLATE 100 MG TABLET PO SCH ×2 (11:09→19:01)
--- NOTE | 2017-12-15 13:06 | PN ---
[facility] Progress Note Note: Patient s/p ER visit for PID. Patient reports improvement in symptoms. Continues to experience pelvic pain, low back pain and right knee pain with ambulation. Reports hx of right meniscus tear and with occasional weakness on the left knee. Patient denies vertigo, CP, dysnea or paresthesia. Vital Signs Temperature 98.3 F 12/15/17 07:28 Pulse Rate 93 H 12/15/17 07:28 Respiratory Rate 18 12/15/17 07:28 Blood Pressure 115/67 12/15/17 07:28 O2 Sat by Pulse Oximetry (%) Laboratory Last Values WBC 8.2 K/mm3 (4.0-10.0) 12/12/17 08:40 RBC 4.82 M/mm3 (3.60-5.2) 12/12/17 08:40 Hgb 11.3 GM/dL (10.7-15.3) 12/12/17 08:40 Hct 35.2 % (32.4-45.2) 12/12/17 08:40 MCV 73.1 fl (80-96) L 12/12/17 08:40 MCH 23.5 pg (25.7-33.7) L 12/12/17 08:40 MCHC 32.1 g/dl (32.0-36.0) 12/12/17 08:40 RDW 19.6 % (11.6-15.6) H 12/12/17 08:40 Plt Count 262 K/MM3 (134-434) 12/12/17 08:40 MPV 7.9 fl (7.5-11.1) 12/12/17 08:40 Neutrophils % 60.7 % (42.8-82.8) 12/12/17 08:40 Lymphocytes % 30.0 % (8-40) 12/12/17 08:40 Monocytes % 8.0 % (3.8-10.2) 12/12/17 08:40 Eosinophils % 0.7 % (0-4.5) 12/12/17 08:40 Basophils % 0.6 % (0-2.0) 12/12/17 08:40 Beta HCG, Quant < 1.0 mIU/ml 12/09/17 10:30 Urine Color Ltyellow 12/11/17 13:40 Urine Appearance Cloudy 12/11/17 13:40 Urine pH 8.0 (5.0-8.0) 12/11/17 13:40 Ur Specific [place] 1.008 (1.001-1.035) 12/11/17 13:40 Urine Protein Negative (NEGATIVE) 12/11/17 13:40 Urine Glucose (UA) Negative (NEGATIVE) 12/11/17 13:40 Urine Ketones Negative (NEGATIVE) 12/11/17 13:40 Urine Blood Negative (NEGATIVE) 12/11/17 13:40 Urine Nitrite Negative (NEGATIVE) 12/11/17 13:40 Urine Bilirubin Negative (<2.0 mg/dL) 12/11/17 13:40 Urine Urobilinogen Negative mg/dL (0.2-1.0) 12/11/17 13:40 Ur Leukocyte Esterase 3+ (NEGATIVE) H 12/11/17 13:40 Urine WBC (Auto) 2 /hpf (3-5) 12/11/17 13:40 Urine RBC (Auto) 5 /hpf (0-3) 12/11/17 13:40 Ur Epithelial Cells Few /HPF (FEW) 12/11/17 13:40 Urine Bacteria Moderate /hpf (NONE SEEN) 12/09/17 00:45 Urine Mucus Rare 12/09/17 00:45 Valproic Acid 10.328 ug/ml (50-100) L 12/10/17 07:00 Hep C Ab Diagnostic <0.1 s/co ratio (0.0-0.9) 12/09/17 09:00 Liver Fibrosis Interp (.) 12/09/17 09:00 other lab results pending A/P Patient AOx3, in no apparent distress Normal HR and Rhythm No adventitious breath sounds + LLQ pain + pain with ambulation, low back and right knee pain Plan: Increase fluids Continue Ibuprofen 800mg TID Continue doxy Lidocaine patch for back, knee and pelvic pain Patient advise to notify staff if symptoms worsen Continue to monitor
[2017-12-15] MEDS: LIDOCAINE 5% TOPICAL PATCH TP SCH (14:43)
[2017-12-15] MEDS ORDERED: PT OWN MED DRAWER 7, Y5N ONE (16:43)
[2017-12-15] MEDS: THIAMINE HCL 100 MG TABLET (FP) PO SCH (21:25)
[2017-12-15] MEDS: MIRTAZAPINE 15 MG TABLET (FP) PO SCH (21:25)
[2017-12-15] MEDS: QUEtiapine FUMARATE 50 MG TABLET PO SCH (21:25)
[2017-12-15] MEDS: IBUPROFEN 400 MG TABLET (FP) PO PRN (21:27)
[2017-12-15] MEDS: LIDOCAINE PATCH REMOVAL MC SCH (21:28)
[2017-12-15] MEDS ORDERED: LIDOCAINE PATCH REMOVAL MC SCH (22:00)
[2017-12-16] MEDS: GABAPENTIN 300 MG CAPSULE (FP) PO SCH ×3 (06:18→21:23)
[2017-12-16] MEDS: DOXYCYCLINE HYCLATE 100 MG TABLET PO SCH ×2 (10:10→18:46)
[2017-12-16] MEDS: FLUOCINONIDE 0.05% CREAM (15 GM TUBE) TP SCH ×4 (10:10→21:25)
[2017-12-16] MEDS: PRENATAL VITAMINS W/ FOLIC ACID TABLET (FP) PO SCH (10:10)
[2017-12-16] MEDS: NICOTINE 21 MG/24 HOURS TOPICAL PATCH TD SCH (10:10)
[2017-12-16] MEDS: LIDOCAINE 5% TOPICAL PATCH TP SCH (10:11)
[2017-12-16] MEDS ORDERED: PT OWN MED DRAWER 7, Y5N ONE (14:23)
[2017-12-16] MEDS: IBUPROFEN 400 MG TABLET (FP) PO PRN (16:10)
[2017-12-16] MEDS: QUEtiapine FUMARATE 50 MG TABLET PO SCH (21:23)
[2017-12-16] MEDS: THIAMINE HCL 100 MG TABLET (FP) PO SCH (21:23)
[2017-12-16] MEDS: MIRTAZAPINE 15 MG TABLET (FP) PO SCH (21:24)
[2017-12-16] MEDS: LIDOCAINE PATCH REMOVAL MC SCH (21:25)
[2017-12-17] MEDS: GABAPENTIN 300 MG CAPSULE (FP) PO SCH ×3 (06:21→23:18)
[2017-12-17] MEDS: PRENATAL VITAMINS W/ FOLIC ACID TABLET (FP) PO SCH (09:57)
[2017-12-17] MEDS: LIDOCAINE 5% TOPICAL PATCH TP SCH (09:57)
[2017-12-17] MEDS: DOXYCYCLINE HYCLATE 100 MG TABLET PO SCH ×2 (09:57→17:46)
[2017-12-17] MEDS: NICOTINE 21 MG/24 HOURS TOPICAL PATCH TD SCH (09:57)
[2017-12-17] MEDS: FLUOCINONIDE 0.05% CREAM (15 GM TUBE) TP SCH ×4 (09:58→23:14)
--- NOTE | 2017-12-17 12:08 | PN ---
S Progress Note (SOAP) Subjective: 32 years old female c/o 10/10 chest pain sharp from left chest to midsternal last 10 minutes and yesterday was from the right chest wall to midsternal "went away" on and off x 7-8 years history of atrial fibrillation on aspirin Objective: 12/17/17 12:06 Vital Signs Temperature 98.9 F 12/17/17 11:15 Pulse Rate 102 H 12/17/17 11:15 Respiratory Rate 18 12/17/17 11:15 Blood Pressure 123/79 12/17/17 11:15 O2 Sat by Pulse Oximetry (%) Laboratory Last Values WBC 8.2 K/mm3 (4.0-10.0) 12/12/17 08:40 RBC 4.82 M/mm3 (3.60-5.2) 12/12/17 08:40 Hgb 11.3 GM/dL (10.7-15.3) 12/12/17 08:40 Hct 35.2 % (32.4-45.2) 12/12/17 08:40 MCV 73.1 fl (80-96) L 12/12/17 08:40 MCH 23.5 pg (25.7-33.7) L 12/12/17 08:40 MCHC 32.1 g/dl (32.0-36.0) 12/12/17 08:40 RDW 19.6 % (11.6-15.6) H 12/12/17 08:40 Plt Count 262 K/MM3 (134-434) 12/12/17 08:40 MPV 7.9 fl (7.5-11.1) 12/12/17 08:40 Neutrophils % 60.7 % (42.8-82.8) 12/12/17 08:40 Lymphocytes % 30.0 % (8-40) 12/12/17 08:40 Monocytes % 8.0 % (3.8-10.2) 12/12/17 08:40 Eosinophils % 0.7 % (0-4.5) 12/12/17 08:40 Basophils % 0.6 % (0-2.0) 12/12/17 08:40 Beta HCG, Quant < 1.0 mIU/ml 12/09/17 10:30 Urine Color Ltyellow 12/11/17 13:40 Urine Appearance Cloudy 12/11/17 13:40 Urine pH 8.0 (5.0-8.0) 12/11/17 13:40 Ur Specific [place] 1.008 (1.001-1.035) 12/11/17 13:40 Urine Protein Negative (NEGATIVE) 12/11/17 13:40 Urine Glucose (UA) Negative (NEGATIVE) 12/11/17 13:40 Urine Ketones Negative (NEGATIVE) 12/11/17 13:40 Urine Blood Negative (NEGATIVE) 12/11/17 13:40 Urine Nitrite Negative (NEGATIVE) 12/11/17 13:40 Urine Bilirubin Negative (<2.0 mg/dL) 12/11/17 13:40 Urine Urobilinogen Negative mg/dL (0.2-1.0) 12/11/17 13:40 Ur Leukocyte Esterase 3+ (NEGATIVE) H 12/11/17 13:40 Urine WBC (Auto) 2 /hpf (3-5) 12/11/17 13:40 Urine RBC (Auto) 5 /hpf (0-3) 12/11/17 13:40 Ur Epithelial Cells Few /HPF (FEW) 12/11/17 13:40 Urine Bacteria Moderate /hpf (NONE SEEN) 12/09/17 00:45 Urine Mucus Rare 12/09/17 00:45 Valproic Acid < 3.000 ug/ml (50-100) L 12/16/17 07:00 Hep C Ab Diagnostic <0.1 s/co ratio (0.0-0.9) 12/09/17 09:00 Liver Fibrosis Interp (.) 12/09/17 09:00 lab noted alert oriented x 3 speech clearly extremities full range of motion cardiac S1S2 no gallop no murmur lung clear bilaterally abdomen soft LLQ tenderness continue doxycycline for PID Assessment: 12/17/17 12:11 chest pain begin aspirn zantac Plan: evaluation at er
[2017-12-17] MEDS: ASPIRIN 81 MG CHEWABLE TABLETS PO SCH (12:54)
[2017-12-17] MEDS: RANITIDINE HCL 150 MG TABLET (FP) PO SCH ×2 (12:54→23:17)
--- NOTE | 2017-12-17 15:58 | EKG ---
Test Reason : Blood Pressure : / mmHG Vent. Rate : 094 BPM Atrial Rate : 094 BPM P-R Int : 136 ms QRS Dur : 080 ms QT Int : 354 ms P-R-T Axes : 040 078 030 degrees QTc Int : 442 ms NORMAL SINUS RHYTHM WITH SINUS ARRHYTHMIA NORMAL ECG WHEN COMPARED WITH ECG OF 08-DEC-2017 22:18, NO SIGNIFICANT CHANGE WAS FOUND Confirmed by ZEYNEP AGUERO MD ([id number]) on 12/17/2017 3:57:49 PM Referred By: Confirmed By:ZEYNEP AGUERO MD
[2017-12-17] MEDS: QUEtiapine FUMARATE 50 MG TABLET PO SCH (23:17)
[2017-12-17] MEDS: THIAMINE HCL 100 MG TABLET (FP) PO SCH (23:17)
[2017-12-17] MEDS: MIRTAZAPINE 15 MG TABLET (FP) PO SCH (23:18)
[2017-12-17] MEDS: LIDOCAINE PATCH REMOVAL MC SCH (23:19)
[2017-12-18] MEDS: GABAPENTIN 300 MG CAPSULE (FP) PO SCH ×3 (06:28→21:19)
[2017-12-18] MEDS: ASPIRIN 81 MG CHEWABLE TABLETS PO SCH (10:18)
[2017-12-18] MEDS: DOXYCYCLINE HYCLATE 100 MG TABLET PO SCH ×2 (10:18→18:11)
[2017-12-18] MEDS: RANITIDINE HCL 150 MG TABLET (FP) PO SCH ×2 (10:18→21:19)
[2017-12-18] MEDS: metroNIDAZOLE 250 MG TABLET PO SCH (10:18)
[2017-12-18] MEDS: NICOTINE 21 MG/24 HOURS TOPICAL PATCH TD SCH (10:18)
[2017-12-18] MEDS: LIDOCAINE 5% TOPICAL PATCH TP SCH (10:19)
[2017-12-18] MEDS: FLUOCINONIDE 0.05% CREAM (15 GM TUBE) TP SCH ×4 (10:19→21:20)
[2017-12-18] MEDS: PRENATAL VITAMINS W/ FOLIC ACID TABLET (FP) PO SCH (10:19)
[2017-12-18] MEDS ORDERED: PT OWN MED DRAWER 7, Y5N ONE (13:05)
[2017-12-18] MEDS: QUEtiapine FUMARATE 50 MG TABLET PO SCH (21:18)
[2017-12-18] MEDS: MIRTAZAPINE 15 MG TABLET (FP) PO SCH (21:19)
[2017-12-18] MEDS: LIDOCAINE PATCH REMOVAL MC SCH (21:19)
[2017-12-18] MEDS: THIAMINE HCL 100 MG TABLET (FP) PO SCH (21:19)
[2017-12-19] MEDS ORDERED: PT OWN MED DRAWER 7, Y5N ONE ×4 (05:49→10:50)
[2017-12-19] MEDS: GABAPENTIN 300 MG CAPSULE (FP) PO SCH ×3 (06:50→21:28)
[2017-12-19] MEDS: LIDOCAINE 5% TOPICAL PATCH TP SCH (09:58)
[2017-12-19] MEDS: NICOTINE 21 MG/24 HOURS TOPICAL PATCH TD SCH (09:58)
[2017-12-19] MEDS: RANITIDINE HCL 150 MG TABLET (FP) PO SCH ×2 (09:59→21:28)
[2017-12-19] MEDS: metroNIDAZOLE 250 MG TABLET PO SCH (09:59)
[2017-12-19] MEDS: DOXYCYCLINE HYCLATE 100 MG TABLET PO SCH ×2 (09:59→19:09)
[2017-12-19] MEDS: ASPIRIN 81 MG CHEWABLE TABLETS PO SCH (09:59)
[2017-12-19] MEDS: PRENATAL VITAMINS W/ FOLIC ACID TABLET (FP) PO SCH (09:59)
[2017-12-19] MEDS: FLUOCINONIDE 0.05% CREAM (15 GM TUBE) TP SCH ×4 (10:01→21:29)
[2017-12-19] MEDS: THIAMINE HCL 100 MG TABLET (FP) PO SCH (21:28)
[2017-12-19] MEDS: QUEtiapine FUMARATE 50 MG TABLET PO SCH (21:28)
[2017-12-19] MEDS: MIRTAZAPINE 15 MG TABLET (FP) PO SCH (21:28)
[2017-12-19] MEDS: LIDOCAINE PATCH REMOVAL MC SCH (21:29)
[2017-12-20] MEDS: GABAPENTIN 300 MG CAPSULE (FP) PO SCH ×3 (06:53→21:41)
[2017-12-20] MEDS: LIDOCAINE 5% TOPICAL PATCH TP SCH (09:48)
[2017-12-20] MEDS: ASPIRIN 81 MG CHEWABLE TABLETS PO SCH (09:49)
[2017-12-20] MEDS: FLUOCINONIDE 0.05% CREAM (15 GM TUBE) TP SCH ×4 (09:49→21:44)
[2017-12-20] MEDS: metroNIDAZOLE 250 MG TABLET PO SCH (09:49)
[2017-12-20] MEDS: PRENATAL VITAMINS W/ FOLIC ACID TABLET (FP) PO SCH (09:49)
[2017-12-20] MEDS: DOXYCYCLINE HYCLATE 100 MG TABLET PO SCH ×2 (09:49→19:05)
[2017-12-20] MEDS: NICOTINE 21 MG/24 HOURS TOPICAL PATCH TD SCH (09:49)
[2017-12-20] MEDS: RANITIDINE HCL 150 MG TABLET (FP) PO SCH ×2 (09:49→21:41)
[2017-12-20] MEDS: NICOTINE POLACRILEX 2 MG GUM BC PRN (09:54)
[2017-12-20] MEDS ORDERED: PT OWN MED DRAWER 7, Y5N ONE (21:08)
[2017-12-20] MEDS: MIRTAZAPINE 15 MG TABLET (FP) PO SCH (21:41)
[2017-12-20] MEDS: QUEtiapine FUMARATE 50 MG TABLET PO SCH (21:41)
[2017-12-20] MEDS: THIAMINE HCL 100 MG TABLET (FP) PO SCH (21:41)
[2017-12-20] MEDS: ACETAMINOPHEN 325 MG TABLET (FP) PO PRN (21:43)
[2017-12-20] MEDS: LIDOCAINE PATCH REMOVAL MC SCH (21:43)
[2017-12-21 06:57] VITALS: BP 124/85; PULSE 98; TEMP 98.5
[2017-12-21] MEDS: GABAPENTIN 300 MG CAPSULE (FP) PO SCH ×3 (07:01→21:15)
[2017-12-21] MEDS ORDERED: PT OWN MED DRAWER 7, Y5N ONE (08:34)
[2017-12-21] MEDS: NICOTINE 21 MG/24 HOURS TOPICAL PATCH TD SCH (10:23)
[2017-12-21] MEDS: RANITIDINE HCL 150 MG TABLET (FP) PO SCH ×2 (10:23→21:15)
[2017-12-21] MEDS: PRENATAL VITAMINS W/ FOLIC ACID TABLET (FP) PO SCH (10:23)
[2017-12-21] MEDS: DOXYCYCLINE HYCLATE 100 MG TABLET PO SCH ×2 (10:23→17:56)
[2017-12-21] MEDS: LIDOCAINE 5% TOPICAL PATCH TP SCH (10:24)
[2017-12-21] MEDS: FLUOCINONIDE 0.05% CREAM (15 GM TUBE) TP SCH ×4 (10:24→21:16)
[2017-12-21] MEDS: ASPIRIN 81 MG CHEWABLE TABLETS PO SCH (10:25)
[2017-12-21] MEDS: NICOTINE POLACRILEX 2 MG GUM BC PRN (10:27)
[2017-12-21] MEDS: metroNIDAZOLE 250 MG TABLET PO SCH (11:16)
--- NOTE | 2017-12-21 14:27 | PN ---
[facility] Progress Note Note: Patient presents with soft stool x 4. Denies fever, nausea and vomiting. Started Menstraul cycle today. Vital Signs Temperature 98.5 F 12/21/17 06:54 Pulse Rate 98 H 12/21/17 06:54 Respiratory Rate 18 12/21/17 06:54 Blood Pressure 124/85 12/21/17 06:54 O2 Sat by Pulse Oximetry (%) Laboratory Tests 12/09/17 12/09/17 12/09/17 00:45 09:00 09:00 WBC 6.9 RBC 4.81 Hgb 11.2 Hct 35.2 MCV 73.1 L MCH 23.3 L MCHC 31.8 L RDW 20.0 H Plt Count 309 D MPV 7.4 L Neutrophils % Lymphocytes % Monocytes % Eosinophils % Basophils % Beta HCG, Quant Urine Color Ltyellow Urine Appearance Cloudy Urine pH 8.0 Ur Specific [place] 1.009 Urine Protein Negative Urine Glucose (UA) Negative Urine Ketones Negative Urine Blood Negative Urine Nitrite Negative Urine Bilirubin Negative Urine Urobilinogen Negative Ur Leukocyte Esterase 2+ H Urine WBC (Auto) 3 Urine RBC (Auto) 4 Ur Epithelial Cells Few Urine Bacteria Moderate Urine Mucus Rare Valproic Acid Hep C Ab Diagnostic <0.1 Liver Fibrosis Interp 12/09/17 12/10/17 12/11/17 10:30 07:00 13:40 WBC RBC Hgb Hct MCV MCH MCHC RDW Plt Count MPV Neutrophils % Lymphocytes % Monocytes % Eosinophils % Basophils % Beta HCG, Quant < 1.0 Urine Color Ltyellow Urine Appearance Cloudy Urine pH 8.0 Ur Specific [place] 1.008 Urine Protein Negative Urine Glucose (UA) Negative Urine Ketones Negative Urine Blood Negative Urine Nitrite Negative Urine Bilirubin Negative Urine Urobilinogen Negative Ur Leukocyte Esterase 3+ H Urine WBC (Auto) 2 Urine RBC (Auto) 5 Ur Epithelial Cells Few Urine Bacteria Urine Mucus Valproic Acid 10.328 L Hep C Ab Diagnostic Liver Fibrosis Interp 12/12/17 12/16/17 08:40 07:00 WBC 8.2 RBC 4.82 Hgb 11.3 Hct 35.2 MCV 73.1 L MCH 23.5 L MCHC 32.1 RDW 19.6 H Plt Count 262 MPV 7.9 Neutrophils % 60.7 Lymphocytes % 30.0 Monocytes % 8.0 Eosinophils % 0.7 Basophils % 0.6 Beta HCG, Quant Urine Color Urine Appearance Urine pH Ur Specific [place] Urine Protein Urine Glucose (UA) Urine Ketones Urine Blood Urine Nitrite Urine Bilirubin Urine Urobilinogen Ur Leukocyte Esterase Urine WBC (Auto) Urine RBC (Auto) Ur Epithelial Cells Urine Bacteria Urine Mucus Valproic Acid < 3.000 L Hep C Ab Diagnostic Liver Fibrosis Interp Obj: Skin: warm and dry GI: soft, BS+, NT Ext: no edema. A/P Pt has prn order for immodium and informed to request medication for diarrhea. diet modifications reviewed pt for d/c in am continue to monitor clinically
[2017-12-21] MEDS: ACETAMINOPHEN 325 MG TABLET (FP) PO PRN (18:19)
[2017-12-21] MEDS: THIAMINE HCL 100 MG TABLET (FP) PO SCH (21:15)
[2017-12-21] MEDS: QUEtiapine FUMARATE 50 MG TABLET PO SCH (21:15)
[2017-12-21] MEDS: MIRTAZAPINE 15 MG TABLET (FP) PO SCH (21:15)
[2017-12-21] MEDS: LIDOCAINE PATCH REMOVAL MC SCH (21:16)
[2017-12-22] MEDS: GABAPENTIN 300 MG CAPSULE (FP) PO SCH (06:20)
[2017-12-22] MEDS ORDERED: PT OWN MED DRAWER 7, Y5N ONE (06:21)
--- NOTE | 2017-12-23 11:23 | PN ---
[facility] Progress Note Note: Being on telephone call recieved call from [facility] on 12/22/17 at 6am regarding scheduled sischarge Walter Gomez, As per patient request, patient wabted to be discharge at 6am. Medications had been sent to pharmacy electronically day before Order to dis.charge home was done on 12/22/17 at 6am.
--- NOTE | 2017-12-23 11:27 | PN ---
[facility] Progress Note Note: Being hospice liaison recieved call from [facility] regarding scheduled discharge Walter Gomez As per nursing reports patient Walter Gomez wanted to be discharge on 12/22/17 at 6am, \As per nursing report medications had been sent a day before to requested pharmacy [employer] did dicharge home order electronically
== END 2017-12-22 06:25 | disposition home or self-care (01) | DRG 772 ==
LOC: YASAS 12:56 → Y3E 15:52
PROVIDERS: ADMIT Psychiatry & Neurology Psychiatry; ATTEND Psychiatry & Neurology Psychiatry
PROC: HZ42ZZZ Group Counseling for Substance Abuse Treatment, Cognitive-Behavioral (ICD-10-PCS; principal; 2017-12-08)
DX: F11.20 Opioid dependence, uncomplicated (principal); F13.20 Sedative, hypnotic or anxiolytic dependence, uncomplicated; F10.20 Alcohol dependence, uncomplicated; F17.210 Nicotine dependence, cigarettes, uncomplicated; F43.10 Post-traumatic stress disorder, unspecified; F31.81 Bipolar II disorder; F39 Unspecified mood [affective] disorder; G47.00 Insomnia, unspecified; K21.9 Gastro-esophageal reflux disease without esophagitis; N73.0 Acute parametritis and pelvic cellulitis; Z86.2 Personal history of diseases of the blood and blood-forming organs and certain disorders involving the immune mechanism
CPT/HCPCS: 36415; 80164; 81003; 81015; 84702; 85025; 85027; 93005; 93010

== ENCOUNTER 2017-12-14 22:53 | Emergency (ER) | payer OTHER ==
[2017-12-15 00:20] VITALS: BMI 23.6
[2017-12-15] MEDS ORDERED: SODIUM CHLORIDE 1,000 ML IV ONE (01:17)
--- NOTE | 2017-12-15 01:26 | PDOC ---
History of Present Illness - General Chief Complaint: Pain Stated Complaint: ABD PAIN Time Seen by Provider: 12/15/17 01:13 History Source: Patient Exam Limitations: No Limitations - History of Present Illness Travel History: No Initial Comments: 12/15/17 01:18 32y F sent from [facility] for evaluation of LLQ pain. Pt states she has been having increasingly severe left lower quadrant pain associated with fevers tmax 100.6, yellowish vaginal discharge for the past 5 days. The patient states that she is in a monogamous relationship, lastl intercourse was 2 weeks ago. The patient endorses some left flank pain. The patient denies any dysuria, urinary frequency, diarrhea, chest pain, shortness of breath, cough. pt does not regularly use protection during intercourse LMP was 10/29, had bleeding for 2 days in november followed by a few days of spotting but this is atypical for her as she has very heavy periods - she had a negative urine test 3 weeks ago Past History - Past Medical History Allergies/Adverse Reactions: Allergies Allergy/AdvReac Type Severity Reaction Status Date / Time pneumococcal vaccine Allergy Severe Swelling Verified 12/08/17 14:54 [From Pneumovax 23] lactose AdvReac Verified 12/10/17 23:04 EGGPLANT Allergy Severe Difficulty Uncoded 12/08/17 14:54 Breathing Home Medications: Ambulatory Orders Gabapentin [Neurontin -] 600 mg PO TID 11/13/17 Quetiapine Fumarate [Seroquel -] 150 mg PO HS 11/13/17 Doxycycline Hyclate 100 mg PO BID 14 Days #28 tablet 12/15/17 Mirtazapine [Remeron -] 15 mg PO DAILY 12/15/17 Anemia: Yes Asthma: No Cancer: No Cardiac Disorders: No CVA: No COPD: No CHF: No Dementia: No Diabetes: No GI Disorders: Yes (acid reflux) Disorders: No HTN: No Hypercholesterolemia: No Kidney Stones: No Liver Disease: No Seizures: No Thyroid Disease: No - Surgical History Abdominal Surgery: Yes (removal of ovarian cyst in 2008) Appendectomy: Yes (in 05/2017) Cardiac Surgery: No Cholecystectomy: No Lung Surgery: No Neurologic Surgery: No Orthopedic Surgery: No - Reproductive History PID: No - Suicide/Smoking/Psychosocial Hx Smoking History: Never smoked Have you smoked in the past 12 months: No Number of Cigarettes Smoked Daily: 20 Information on smoking cessation initiated: No 'Breaking Loose' booklet given: 11/13/17 Hx Alcohol Use: No Drug/Substance Use Hx: No Substance Use Type: Alcohol, Heroin Hx Substance Use Treatment: Yes (completed this program 4 years ago) Abd/GI Specific PMHX - Complaint Specific PMHX Hepatitis: No Pancreatitis: No Review of Systems - Review of Systems Able to Perform ROS?: Yes Comments:: 12/15/17 01:26 Constitutional - +Fever, no reported Chills, HEENT: no reported vision changes, sore throat Respiratory: no reported cough, sob, hemoptysis Cardiac: no reported chest pain, palpitations, light headedness, leg swelling Abd/GI: +abd pain, no reported nausea, vomiting, blood per rectum, melena, diarrhea : + yellowish discharge no reported dysuria, frequency, Musculskelatal - no reported back pain, joint swelling skin - no reported bruising, erythema, rash neurological: no reported headache, numbness, focal weakness, tingling, ataxia, hematologic: no reported anemia, easy bruising, easy bleeding *Physical Exam - Vital Signs Last Vital Signs Temp Pulse Resp BP Pulse Ox 99.1 F 119 H 18 118/86 95 12/15/17 00:15 12/15/17 00:15 12/15/17 00:15 12/15/17 00:15 12/15/17 00:15 - Physical Exam Comments: 12/15/17 01:28 GENERAL: The patient is awake, alert, and fully oriented, Nontoxic - in no acute distress. HEAD: Normocephalic, atraumatic. EYES: extraocular movements intact, sclera anicteric, conjunctiva clear. ENT: Normal voice, Moist mucous membranes. NECK: Normal range of motion, supple LUNGS: Breath sounds equal, clear to auscultation bilaterally. No wheezes, no rhonchi, no rales. HEART: tachycardic, without murmur, rub or gallop. ABDOMEN: +llq tenderness, no rebound/guarding, mild L cva tenderness EXTREMITIES: Normal range of motion, no edema. NEUROLOGICAL: No facial assymetry, Normal speech, PSYCH: Normal mood, normal affect. SKIN: Warm, Dry, normal turgor, 12/15/17 02:42 PELVIC: whitish/yellowish discharge in vaginal vault, mild CMT and L adnexal tenderness ED Treatment Course - LABORATORY CBC & Chemistry Diagram: 12/15/17 01:35 12/15/17 01:35 - RADIOLOGY Radiology Studies Ordered: Category Date Time Status TRANSVAGINAL ULTRASOUND US [US] Stat Ultrasound 12/15/17 01:14 Ordered Medical Decision Making - Medical Decision Making 12/15/17 01:37 ddx includes ectopic , PID, TOA, cystitis/uti/pyelo, uteritis will ck labs, cbc, cmp, ua/culture, gc, ivf, fluids, morphine for pain pelvic US will reassess 12/15/17 02:42 will sign pt out to dr. hu to brittany GC sent and d/w patient will treat pt for STDs pending results awaiting US results 12/15/17 02:50 pts US shows no signs of TOA, +complex cyst in ovary vs ruptured cyst will give pt ctx and doxy will give pt alitlte more morphine for pain control pt signed out to dr. hu to brittany and reassess *DC/Admit/Observation/Transfer Diagnosis at time of Disposition: PID (acute pelvic inflammatory disease) - Discharge Dispostion Disposition: HOME Condition at time of disposition: Stable Admit: No - Prescriptions Prescriptions: Doxycycline Hyclate 100 mg PO BID 14 Days #28 tablet - Referrals - Patient Instructions Printed Discharge Instructions: DI for Pelvic Inflammatory Disease Additional Instructions: You are being treated for pelvic inflammatory disease, a sexually transmitted disease. Take the antibiotics as prescribed to treat your infection. Anyone you have been sexually active with recently should also be tested and possibly treated for the same infection. If you experience worsening pain, fevers, or any other concerning symptoms, return to the ER immediately. Otherwise, follow up with your primary doctor within 1 week for a re-evaluation. - Post Discharge Activity
[2017-12-15] MEDS ORDERED: morphine CARPU-JECT 2 MG/1 ML DISP.SYRIN IVPUSH ONE (01:38)
[2017-12-15 01:50] LABS: BASO % 0.4 % (0-2.0); EOS % 0.5 % (0-4.5); HEMATOCRIT 32.3 % (32.4-45.2); HEMOGLOBIN 10.8 GM/dL (10.7-15.3); LYMPH % 32.6 % (8-40); MCH 24.2 pg (25.7-33.7); MCHC 33.3 g/dl (32.0-36.0); MEAN CELL VOLUME 72.6 fl (80-96); MEAN PLT VOLUME 7.5 fl (7.5-11.1); MONO % 8.6 % (3.8-10.2); NEUT % 57.9 % (42.8-82.8); PLATELET COUNT 250 K/MM3 (134-434); RBC 4.44 M/mm3 (3.60-5.2); RDW 19.5 % (11.6-15.6); WHITE BLOOD COUNT 9.5 K/mm3 (4.0-10.0)
[2017-12-15 01:53] LABS: URINE APPEARANCE CLOUDY; URINE BILIRUBIN NEGATIVE (<2.0 mg/dL); URINE BLOOD NEGATIVE (NEGATIVE); URINE COLOR LTYELLOW; URINE GLUCOSE (UA) NEGATIVE (NEGATIVE); URINE KETONE NEGATIVE (NEGATIVE); URINE NITRITE NEGATIVE (NEGATIVE); URINE PROTEIN NEGATIVE (NEGATIVE); URINE UROBILINOGEN NEGATIVE mg/dL (0.2-1.0)
[2017-12-15 01:54] LABS: HCG,QUALITATIVE URINE NEGATIVE; URINE LEUK ESTERASE 3+ (NEGATIVE)
[2017-12-15 01:58] LABS: EPI CELLS MODERATE /HPF (FEW); URINE BACTERIA RARE /hpf (NONE SEEN); URINE MUCUS RARE
[2017-12-15] MEDS ORDERED: MORPHINE SULFATE 10 MG/1 ML *VIAL ONE ×2 (02:08→03:21)
[2017-12-15 02:18] LABS: ALBUMIN 3.7 g/dl (3.4-5.0); ANION GAP 8 (8-16); BILIRUBIN,TOTAL 0.3 mg/dL (0.2-1.0); BLOOD UREA NITROGEN 15 mg/dL (7-18); CALCIUM 9.2 mg/dL (8.5-10.1); CHLORIDE 109 mmol/L (98-107); CO2 24 mmol/L (21-32); CREATININE 0.7 mg/dL (0.55-1.02); GLUCOSE,RANDOM 88 mg/dL (74-106); SGOT/AST 13 U/L (15-37); SGPT/ALT 13 U/L (12-78); SODIUM 141 mmol/L (136-145); TOT PROT 7.2 g/dl (6.4-8.2)
[2017-12-15 02:19] LABS: ALK PHOS 76 U/L (45-117)
[2017-12-15] MEDS ORDERED: DOXYCYCLINE HYCLATE 100 MG CAPSULE PO ONE ×2 (02:40→03:21)
[2017-12-15] MEDS ORDERED: morphine CARPU-JECT 4 MG/1 ML DISP.SYRIN IVPUSH ONE (02:43)
[2017-12-15] MEDS ORDERED: SODIUM CHLORIDE 1,000 ML IV STA (03:36)
[2017-12-15] MEDS ORDERED: ACETAMINOPHEN 1000 MG/100 ML VIAL (NON FORMULARY) IVPB ONE (03:36)
--- NOTE | 2017-12-15 04:18 | PDOC ---
*Physical Exam - Vital Signs Last Vital Signs Temp Pulse Resp BP Pulse Ox 99.1 F 109 H 18 121/69 95 12/15/17 00:15 12/15/17 03:25 12/15/17 03:25 12/15/17 03:25 12/15/17 00:15 - Physical Exam Comments: 12/15/17 04:42 "GENERAL: Awake, alert, and fully oriented, in no acute distress. Generally weak appearing. HEAD: No signs of trauma EYES: PERRLA, EOMI, sclera anicteric, conjunctiva clear ENT: Auricles normal inspection, hearing grossly normal, nares patent, oropharynx clear without exudates. Moist mucosa NECK: Nontender, no stepoffs, Normal ROM, supple, no lymphadenopathy, JVD, or masses LUNGS: Breath sounds equal, clear to auscultation bilaterally. No wheezes, and no crackles HEART: Regular rate and rhythm, normal S1 and S2, no murmurs, rubs or gallops ABDOMEN: +mild suprapubic TTP, normoactive bowel sounds. No guarding, no rebound. No masses EXTREMITIES: Normal range of motion, no edema. No clubbing or cyanosis. No cords, erythema, or tenderness NEUROLOGICAL: Cranial nerves II through XII intact. 5/5 strength and sensation in all extremities, Normal speech, normal gait, normal cerebellar function SKIN: Warm, Dry, normal turgor, no rashes or lesions noted. " ED Treatment Course - LABORATORY CBC & Chemistry Diagram: 12/15/17 01:35 12/15/17 01:35 - ADDITIONAL ORDERS Additional order review: Laboratory Results 12/15/17 12/15/17 01:35 01:35 Sodium 141 Potassium 4.0 Chloride 109 H Carbon Dioxide 24 Anion Gap 8 BUN 15 Creatinine 0.7 Creat Clearance w eGFR > 60 Random Glucose 88 Calcium 9.2 Total Bilirubin 0.3 D AST 13 L ALT 13 Alkaline Phosphatase 76 Total Protein 7.2 Albumin 3.7 Urine Color Ltyellow Urine Appearance Cloudy Urine pH 6.0 D Ur Specific [place] 1.009 Urine Protein Negative Urine Glucose (UA) Negative Urine Ketones Negative Urine Blood Negative Urine Nitrite Negative Urine Bilirubin Negative Urine Urobilinogen Negative Ur Leukocyte Esterase 3+ H Urine WBC (Auto) 159 Urine RBC (Auto) 83 Ur Epithelial Cells Moderate Urine Bacteria Rare Urine Mucus Rare Urine HCG, Qual Negative 12/15/17 01:35 RBC 4.44 MCV 72.6 L MCHC 33.3 RDW 19.5 H MPV 7.5 Neutrophils % 57.9 Lymphocytes % 32.6 Monocytes % 8.6 Eosinophils % 0.5 Basophils % 0.4 - Medications Given in the ED: ED Medications Discontinued Medications Generic Name Dose Route Start Last Admin Trade Name Abida PRN Reason Stop Dose Admin Acetaminophen 1,000 mg 12/15/17 03:36 12/15/17 03:43 Ofirmev Injection - IVPB 12/15/17 03:37 1,000 mg ONCE ONE Administration Ceftriaxone Sodium 250 mg 12/15/17 02:38 12/15/17 03:20 Rocephin - IM 12/15/17 02:39 250 mg ONCE ONE Administration Doxycycline Hyclate 100 mg 12/15/17 02:40 12/15/17 03:20 Vibramycin - PO 12/15/17 02:41 100 mg ONCE ONE Administration Sodium Chloride 1,000 mls @ 1,000 mls/hr 12/15/17 01:17 12/15/17 02:14 Normal Saline - IV 12/15/17 02:16 1,000 mls/hr .Q1H ONE Administration Morphine Sulfate 2 mg 12/15/17 01:38 12/15/17 02:14 Morphine Injection - IVPUSH 12/15/17 01:39 2 mg ONCE ONE Administration Morphine Sulfate 4 mg 12/15/17 02:43 12/15/17 03:30 Morphine Injection - IVPUSH 12/15/17 02:44 4 mg ONCE ONE Administration Medical Decision Making - Medical Decision Making 12/15/17 04:18 Sign out taken at 2AM Pt is 32 yo F with LLQ pain, vaginal discharge, found to have +CMT on exam. TVUS shows possible ruptured ovarian cyst. UA consistent with infection. Pt clinically consistent with PID. Pt given ceftriaxone and doxy by Dr. Mok. Leroy pending re-evaluation of vitals and pain. Pt reassessed - now feeling significantly better. Pain tolerable. Vitals reassessed - HR is improving. *DC/Admit/Observation/Transfer Diagnosis at time of Disposition: PID (acute pelvic inflammatory disease) - Discharge Dispostion Disposition: HOME Condition at time of disposition: Stable - Prescriptions Prescriptions: Doxycycline Hyclate 100 mg PO BID 14 Days #28 tablet - Referrals - Patient Instructions Printed Discharge Instructions: DI for Pelvic Inflammatory Disease Additional Instructions: You are being treated for pelvic inflammatory disease, a sexually transmitted disease. Take the antibiotics as prescribed to treat your infection. Anyone you have been sexually active with recently should also be tested and possibly treated for the same infection. If you experience worsening pain, fevers, or any other concerning symptoms, return to the ER immediately. Otherwise, follow up with your primary doctor within 1 week for a re-evaluation. - Post Discharge Activity - Attestations Physician Attestion: 12/15/17 04:22 I, Dr. Mike Trotter MD, attest that this document has been prepared under my direction and personally reviewed by me in its entirety. I further attest, that it accurately reflects all work, treatment, procedures and medical decision -making performed by me.
[2017-12-15 04:43] VITALS: BP 116/70; PULSE 95; TEMP 98.2
== END 2017-12-15 05:43 | disposition home or self-care (01) ==
LOC: JER 22:53
PROC: 3E033NZ Introduction of Analgesics, Hypnotics, Sedatives into Peripheral Vein, Percutaneous Approach (ICD-10-PCS; principal; 2017-12-14)
PROC: 3E033NZ Introduction of Analgesics, Hypnotics, Sedatives into Peripheral Vein, Percutaneous Approach (ICD-10-PCS; 2017-12-14)
PROC: 3E02329 Introduction of Other Anti-infective into Muscle, Percutaneous Approach (ICD-10-PCS; 2017-12-14)
DX: N73.8 Other specified female pelvic inflammatory diseases (principal); N83.202 Unspecified ovarian cyst, left side
CPT/HCPCS: 36415; 76830-TC; 80053; 81003; 81015; 84703; 85025; 87086; 87491; 87591; 96372; 96374; 96375; 96376; 99282-25; J0131; J7030

== ENCOUNTER 2017-12-17 12:55 | Emergency (ER) | payer OTHER ==
[2017-12-17 13:16] VITALS: BP 126/74; PULSE 100; TEMP 98.5; BMI 23.6
--- NOTE | 2017-12-17 13:40 | PDOC ---
History of Present Illness - General Chief Complaint: Pain Stated Complaint: CHEST PAIN Time Seen by Provider: 12/17/17 13:20 - History of Present Illness Initial Comments: 12/17/17 13:57 32 year old female with a PMH of alcohol abuse presents to our ED from [facility] alcohol rehabilitation c/o increasing severity of pelvic pain as well as increased pelvic discharge. Patient states her pain is diffuse, 10/10, constant , with no relief from NSAIDs. Patient states she was evaluated at our ED two days previous at which time she was diagnosed with PID, treated and discharged home. Patient also notes an EKG showed "an abnormality" however she states the abnormality is 2/2 to her not taking her Xanax for anxiety. As per EMR, patient was evaluated at our facility on 12/14/17 at which time she was propyhlatically treated for PID as pelvic exam showed purulent white discharge and patient had CMT on physical exam. Surgical: appendectomy, cholecystectomy, B/L ovarian cyst removal Social: last alcoholic drink 1 week previous, remote h/o cocaine and heroin, denies nicotine Past History - Past Medical History Allergies/Adverse Reactions: Allergies Allergy/AdvReac Type Severity Reaction Status Date / Time pneumococcal vaccine Allergy Severe Swelling Verified 12/17/17 13:12 [From Pneumovax 23] lactose AdvReac Verified 12/17/17 13:12 EGGPLANT Allergy Severe Difficulty Uncoded 12/17/17 13:12 Breathing Home Medications: Ambulatory Orders Gabapentin [Neurontin -] 600 mg PO TID 11/13/17 Quetiapine Fumarate [Seroquel -] 150 mg PO HS 11/13/17 Doxycycline Hyclate 100 mg PO BID 14 Days #28 tablet 12/15/17 Mirtazapine [Remeron -] 15 mg PO DAILY 12/15/17 metroNIDAZOLE [Flagyl -] 500 mg PO DAILY #14 tablet 12/17/17 Anemia: Yes Asthma: No Cancer: No Cardiac Disorders: Yes (HEART PALPITATIONS.) CVA: No COPD: No CHF: No Dementia: No Diabetes: No GI Disorders: Yes (acid reflux) Disorders: No HTN: No Hypercholesterolemia: No Kidney Stones: No Liver Disease: No Psychiatric Problems: Yes (ANXIETY.) Seizures: No Thyroid Disease: No Other medical history: ADDICTION. - Surgical History Abdominal Surgery: Yes (removal of B/L ovarian cyst in 2008) Appendectomy: Yes (in 05/2017) Cardiac Surgery: No Cholecystectomy: (GALLSTONES.) Lung Surgery: No Neurologic Surgery: No Orthopedic Surgery: No - Reproductive History PID: No - Immunization History Immunization Up to Date: Yes - Suicide/Smoking/Psychosocial Hx Smoking History: Current every day smoker Have you smoked in the past 12 months: No Number of Cigarettes Smoked Daily: 10 Information on smoking cessation initiated: No 'Breaking Loose' booklet given: 11/13/17 Hx Alcohol Use: Yes Drug/Substance Use Hx: Yes Substance Use Type: Alcohol Hx Substance Use Treatment: Yes (completed this program 4 years ago) Review of Systems - Review of Systems Constitutional: No: Chills, Fever HEENTM: No: Recent change in vision, Throat Pain Respiratory: No: Cough, Shortness of Breath Cardiac (ROS): No: Chest Pain, Edema, Lightheadedness, Palpitations, Syncope, Chest Tightness ABD/GI: Yes: Abdominal cramping. No: Constipated, Diarrhea, Nausea, Vomiting : Yes: Other (yellowish vaginal discharge). No: Burning, Dysuria Neurological: No: Headache, Numbness, Tingling Psychiatric: Yes: Anxiety, Depression *Physical Exam - Vital Signs Last Vital Signs Temp Pulse Resp BP Pulse Ox 98.5 F 100 H 20 126/74 99 12/17/17 13:04 12/17/17 13:04 12/17/17 13:04 12/17/17 13:04 12/17/17 13:04 - Physical Exam General Appearance: Yes: Nourished, Appropriately Dressed HEENT: positive: EOMI, ANNA Neck: positive: Trachea midline, Supple Respiratory/Chest: positive: Lungs Clear Cardiovascular: positive: S1, S2. negative: Edema, JVD, Murmur Vascular Pulses: Dorsalis-Pedis (R): 2+, Doralis-Pedis (L): 2+ Female Pelvic Exam: positive: normal external exam, cervical os closed, discharge (yellowish vaginal discharge; (+) CMT ). 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 PE significant for CMT and yellowish discharge on pelvic exam and LLQ and Suprapubic TTP. Patient recently prophylactically treated for G/C. Will obtain repeat UA/UC, G/C as well as repeat ECG. ECG shows sinus tachycardia HR 108, normal intervals, no deviations, no AIDAN/STD/ TWI - non-ischemic ECG. Tachycardia possibly 2/2 to withdrawal and or dehydration. Will given 1 L IV NS. No c/o chest pain, shortness of breath. Low clinical suspicion for ACS. 12/17/17 18:15 UA shows 3+ Leukocyte esterase, 236 WBC (159 WBC two days previous) and 2+ blood. OTD dose of Flagyll given in ED -- will d/c with presumed PID treatment of Doxy/ Flagyll/Ceftriaxone. As previous TVUS showed possible hemmorhagic cyst, will obtain CT abdomen to r/ o any acute ovarian pathology (including hemmoragic cyst/rupture) as well as any diverticulitis/SBO as possible etiology of LLQ pain. 12/17/17 18:15 Patient signed out to Dr. Gomes (Resident) and Dr. Diaz (Attending) in stable condition. *DC/Admit/Observation/Transfer Diagnosis at time of Disposition: PID (pelvic inflammatory disease) - Discharge Dispostion Disposition: HOME - Prescriptions Prescriptions: metroNIDAZOLE [Flagyl -] 500 mg PO DAILY #14 tablet - Referrals - Patient Instructions Printed Discharge Instructions: DI for Pelvic Inflammatory Disease Additional Instructions: You were evaluated today in the ER for your PID pain. We administered 500mg of Recephin in ED. Continue Doxycyclin 100 mg BID for 14 days. Add metronidazole 500 BID for 14 days as well for completion of treatment. Please return if any return or increase in pain, fever, chills, or other concerning symptoms. Follow- up with primary care provider as needed for further non-emergent care. - Post Discharge Activity
[2017-12-17] MEDS ORDERED: KETOROLAC TROMETHAMINE 30 MG/1 ML VIAL IVPUSH ONE (13:44)
--- NOTE | 2017-12-17 13:48 | PDOC ---
Attending Attestation - Resident Resident Name: Franci Kiser - ED Attending Attestation I have performed the following: I have examined & evaluated the patient, The case was reviewed & discussed with the resident, I agree w/resident's findings & plan, Exceptions are as noted - HPI HPI: 12/17/17 13:48 32y F from [facility] presents b/l adnexal tenderness, pt was evaluated by myself 2 days ago and thought to have PID, was treated with doxy/ctx, however pain has persisted and pt still complaints of mild fevers, notes her discharge is now more yellow than before. pt denies any fever/chills. pts UA was dirty - but urine culture was negative and GC was negative. on exam pt has moderate L/suprapubic tenderesnss +Dc on pelvic per resident willl recheck her labs to trend for leukocytosis will repeat GC/ua/ucx will give pain meds and reassess pt does not regularly use protection during intercourse LMP was 10/29, had bleeding for 2 days in november followed by a few days of spotting but this is atypical for her as she has very heavy periods - she had a negative urine test 3 weeks ago - Physicial Exam PE: 12/19/17 20:25 see above - Medical Decision Making pt signed out to evening team at 7pm to reassess and disposition Heart Score/ECG Review - ECG Impressions Comment:: 12/17/17 15:39 Twelve-lead EKG was performed and reviewed by me. There is normal sinus rhythm with a rate of 108 The axis is normal. The intervals are normal. There is normal R wave progression There are no ST or T wave abnormalities. Impression: sinus tachycardia
[2017-12-17] MEDS ORDERED: morphine CARPU-JECT 4 MG/1 ML DISP.SYRIN IVPUSH ONE (13:56)
[2017-12-17] MEDS ORDERED: SODIUM CHLORIDE 0.9% 500 ML INFUS.BAG IV ONE (14:11)
[2017-12-17] MEDS ORDERED: morphine SULFATE 4 MG/ML VIAL ONE ×2 (15:27→15:48)
[2017-12-17 15:52] LABS: ANION GAP 11 (8-16); BLOOD UREA NITROGEN 12 mg/dL (7-18); CALCIUM 9.3 mg/dL (8.5-10.1); CHLORIDE 107 mmol/L (98-107); CO2 24 mmol/L (21-32); CREATININE 0.6 mg/dL (0.55-1.02); GLUCOSE,RANDOM 89 mg/dL (74-106); POTASSIUM 4.3 mmol/L (3.5-5.1); SGOT/AST 16 U/L (15-37); SGPT/ALT 16 U/L (12-78); SODIUM 142 mmol/L (136-145); TOT PROT 7.9 g/dl (6.4-8.2)
[2017-12-17 15:55] LABS: ALK PHOS 82 U/L (45-117); BILIRUBIN,TOTAL 0.2 mg/dL (0.2-1.0)
[2017-12-17 16:03] LABS: BASO % 0.2 % (0-2.0); EOS % 0.1 % (0-4.5); HEMOGLOBIN 11.4 GM/dL (10.7-15.3); LYMPH % 20.9 % (8-40); MCH 24.2 pg (25.7-33.7); MCHC 32.7 g/dl (32.0-36.0); MEAN PLT VOLUME 7.6 fl (7.5-11.1); MONO % 6.7 % (3.8-10.2); NEUT % 72.1 % (42.8-82.8); PLATELET COUNT 252 K/MM3 (134-434); RBC 4.73 M/mm3 (3.60-5.2); RDW 20.9 % (11.6-15.6); WHITE BLOOD COUNT 9.8 K/mm3 (4.0-10.0)
[2017-12-17 17:14] LABS: URINE APPEARANCE CLOUDY; URINE BILIRUBIN NEGATIVE (<2.0 mg/dL); URINE BLOOD 2+ (NEGATIVE); URINE COLOR LTYELLOW; URINE GLUCOSE (UA) NEGATIVE (NEGATIVE); URINE KETONE NEGATIVE (NEGATIVE); URINE NITRITE NEGATIVE (NEGATIVE); URINE PROTEIN NEGATIVE (NEGATIVE); URINE UROBILINOGEN NEGATIVE mg/dL (0.2-1.0)
[2017-12-17 17:21] LABS: URINE LEUK ESTERASE 3+ (NEGATIVE)
[2017-12-17 17:22] LABS: EPI CELLS MODERATE /HPF (FEW); URINE BACTERIA RARE /hpf (NONE SEEN); URINE MUCUS RARE
[2017-12-17] MEDS ORDERED: metroNIDAZOLE 500 MG TABLET PO ONE (18:20)
--- NOTE | 2017-12-17 19:06 | PDOC ---
*Physical Exam - Vital Signs Last Vital Signs Temp Pulse Resp BP Pulse Ox 98.5 F 100 H 20 126/74 99 12/17/17 13:04 12/17/17 13:04 12/17/17 13:04 12/17/17 13:04 12/17/17 13:04 ED Treatment Course - LABORATORY CBC & Chemistry Diagram: 12/17/17 15:02 12/17/17 15:02 - ADDITIONAL ORDERS Additional order review: Laboratory Results 12/17/17 12/17/17 12/17/17 17:00 17:00 15:02 Sodium 142 Potassium 4.3 Chloride 107 Carbon Dioxide 24 Anion Gap 11 BUN 12 Creatinine 0.6 Creat Clearance w eGFR > 60 Random Glucose 89 Calcium 9.3 Total Bilirubin 0.2 D AST 16 ALT 16 Alkaline Phosphatase 82 Total Protein 7.9 Albumin 4.0 Urine Color Ltyellow Urine Appearance Cloudy Urine pH 7.0 Ur Specific [place] 1.004 Urine Protein Negative Urine Glucose (UA) Negative Urine Ketones Negative Urine Blood 2+ H Urine Nitrite Negative Urine Bilirubin Negative Urine Urobilinogen Negative Ur Leukocyte Esterase 3+ H Urine WBC (Auto) 236 Urine RBC (Auto) 23 Ur Epithelial Cells Moderate Urine Bacteria Rare Urine Mucus Rare Urine HCG, Qual Negative 12/17/17 15:02 RBC 4.73 MCV 74.0 L MCHC 32.7 RDW 20.9 H MPV 7.6 Neutrophils % 72.1 D Lymphocytes % 20.9 D Monocytes % 6.7 Eosinophils % 0.1 Basophils % 0.2 - Medications Given in the ED: ED Medications Discontinued Medications Generic Name Dose Route Start Last Admin Trade Name Freq PRN Reason Stop Dose Admin Ketorolac Tromethamine 30 mg 12/17/17 13:44 12/17/17 16:31 Toradol Injection - IVPUSH 12/17/17 13:45 Not Given ONCE ONE Morphine Sulfate 4 mg 12/17/17 13:56 12/17/17 16:01 Morphine Injection - IVPUSH 12/17/17 13:57 4 mg ONCE ONE Administration Sodium Chloride 1,000 ml 12/17/17 14:11 12/17/17 16:00 Normal Saline - IV 12/17/17 14:12 1,000 ml ONCE ONE Administration Medical Decision Making - Medical Decision Making 12/17/17 19:06 Care taken over from Dr. Kiser. 12/17/17 20:41 EKG / Troponin ordered for evaluation of patient's chest pain. 12/17/17 20:43 Rocephin 500 given for further PID treatment. Will have patient continue doxycyclin Rx as well as add flagyl 500 BID for 14 days. 12/17/17 22:01 Contacted [facility] who will continue medications while under their care. Also sent further Rx for flagyl to pt's pharmacy to fill as needed if difficulties w / Rx from [facility] at discharge. Discharging to home. *DC/Admit/Observation/Transfer Diagnosis at time of Disposition: PID (pelvic inflammatory disease) - Discharge Dispostion Disposition: HOME - Prescriptions Prescriptions: metroNIDAZOLE [Flagyl -] 500 mg PO DAILY #14 tablet - Referrals - Patient Instructions Printed Discharge Instructions: DI for Pelvic Inflammatory Disease Additional Instructions: You were evaluated today in the ER for your PID pain. We administered 500mg of Recephin in ED. Continue Doxycyclin 100 mg BID for 14 days. Add metronidazole 500 BID for 14 days as well for completion of treatment. Please return if any return or increase in pain, fever, chills, or other concerning symptoms. Follow- up with primary care provider as needed for further non-emergent care. - Post Discharge Activity
[2017-12-17] MEDS ORDERED: metroNIDAZOLE 250 MG TABLET ONE (19:47)
[2017-12-17] MEDS ORDERED: CEFTRIAXONE 500 MG in DEXTROSE 5%-WATER - 50 ML IVPB ONE (20:43)
[2017-12-17] MEDS ORDERED: cefTRIAXone SODIUM 1 GM VIAL ONE (20:44)
== END 2017-12-17 22:59 | disposition home or self-care (01) ==
LOC: JER 12:55
PROC: 3E03329 Introduction of Other Anti-infective into Peripheral Vein, Percutaneous Approach (ICD-10-PCS; principal; 2017-12-17)
PROC: 3E033NZ Introduction of Analgesics, Hypnotics, Sedatives into Peripheral Vein, Percutaneous Approach (ICD-10-PCS; 2017-12-17)
PROC: 3E0333Z Introduction of Anti-inflammatory into Peripheral Vein, Percutaneous Approach (ICD-10-PCS; 2017-12-17)
DX: N73.9 Female pelvic inflammatory disease, unspecified (principal)
CPT/HCPCS: 36415; 74176-TC; 80053; 81003; 81015; 82550; 84484; 84703; 85025; 87086; 87491; 87591; 99284-25